=== PATIENT | female | born 1990 | race Caucasian/White ===

== ENCOUNTER 2024-08-19 08:18 | Inpatient (IN) ==
[2024-08-19] MEDS ORDERED: LIDOCAINE 1% LOCAL 20 ML VIAL INFIL PRN (09:39)
[2024-08-19] MEDS ORDERED: OXYTOCIN 30 UNITS/NSS 30 UNITS/500 ML BAG IV PRN (09:39)
[2024-08-19] MEDS: miSOPROStoL 25 MCG TAB PO SCH (10:09)
--- NOTE | 2024-08-19 10:27 | Obstetrical Progress Note ---
Date of Service August 19, 2024 Assessment & Plan (1) : Plan: 33yo G1@ 39 weeks Here for labor induction FHR; CAT1 VE; 1-2/25/-2 Ctx; irregular Bedside sono; VT Cytotec #1 ordered Admission and Anticipated Discharge Date Admission Date: August 19, 2024 Results & Data Vital Signs (Past 12 Hours) Vital Signs Temp Pulse Resp BP 08/19/24 09:21 74 118/80 08/19/24 08:57 36.5 C 77 16 121/81 08/19/24 08:26 77 121/81
[2024-08-19 10:32] LABS: Hematocrit (blood only) 35.8 % (37.0-47.0); Hemoglobin 12.2 g/dl (12.0-16.0); Mean Corpuscular Hemoglobin 30.4 pg (25.0-34.0); Mean Corpuscular Hgb Conc 34.1 g/dL (32.0-36.0); Mean Corpuscular Volume 89.3 fL (80.0-100.0); Mean Platelet Volume 10.5 fL (9.4-12.4); Platelet Count 188 K/uL (130-400); RDW Standard Deviation 42.6 fL (36.4-46.3); Red Blood Count 4.01 M/uL (4.20-5.40); White Blood Count 10.35 K/ul (4.8-10.8)
--- OUTSIDE RECORDS SUMMARY | 2024-08-19 17:25 | External Medical Summary | Summary of Care ---
Author Name Unknown Organization [facility] Address [address] [facility] [address] Phone [phone] Care Team Providers Care Rn Managed Care Name Role Phone Judy Goss DO Primary Care Provider Reason for Visit * Reason Comments Non Stress Test IVF Return Visit 36w4d Encounter Details Date Type Department Care Team (Late st Contact Info) Description 08/01/2024 10:15 AM EDT Office Visit Gynecology/Obstetric s, [place] [address] [place] [phone] Radha Paula PA-C [address] [place] [address] [place], Non Stress Test [address] [facility] [place] [phone] resulting from in vitro fertilization, antepartum*; Antepartum anemia complicating ; Abnormal glucose tolerance in mother complicating Allergies No known active allergiesdocumented as of this encounter (statuses as of 08/01/2024) Medications Medication Sig Dispensed Refills Start Date End Date Status Folic Acid 0.8 MG Oral Capsule Take by mouth. Active 6.75-0.2 MG Oral Tablet Take by mouth. Active Breast Pump status of mother Z39.1 1 Each 05/30/2024 Active Iron-Vitamin C 65-125 MG Oral Tablet (Vitron C)Indications:Ante anemia complicating Take 1 Tablet by mouth in the morning. 90 Tablet 3 05/31/2024 Active Docusate Sodium 100 MG Oral Capsule (Colace)Indication s:Antepartum anemia complicating Take 1 Capsule by mouth 2 times a day as needed for Constipation. 60 Capsule 5 05/31/2024 Active documented as of this encounter (statuses as of 08/01/2024) Active Problems Problem Noted Date Diagnosed Date Antepartum anemia complicating 024 Abnormal glucose tolerance in mother complicatin g 05/31/2024 Overview: Failed 1 hour at 27w5d 3 hour ordered resulting from in vitro fertilization, antepartum 02/08/2024 Overview: Patient's egg and partner's sperm Embryo Transfer 12/08/23 PGT-A (Preimplantation Genetic Testing for Aneuploidy) completed Last Assessment & Plan: We reviewed slightly increased risk for congenital anomalies, particularly cardiac, in IVF pregnancies as well as FGR. Etiology of these complications is unknown; perhaps related to underlying cause of the infertility vs. embryo cell culture. The risk is higher when ICSI is used. echo may not detect small VSD (<2mm) but is effective in diagnosis of most cyanotic lesions and many other clinically relevant cardiac defects. Today's exam did not suggest any evidence of cardiac abnormality. 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 Previously had regular periods She was not on any medications--used plan b once or twice Spontaneously started to get cycle again this past month Reviewed same. rx tsh No further work up at present since she desires to start control pill . Exam was negative documented as of this encounter (statuses as of 08/01/2024) Immunizations Name Administration Dates Next Due COVID-19 mRNA, LNP-s, No Pre serve, 2-Dose Series (Moderna) 03/12/2021,02/05/2021 HEPATITIS B VACCINE, RECOMB, 20 MCG/ML, ADULT (HEPLISAV-B) 03/20/2023,02/18/2023 Hepatitis B, 0-19 yrs 08/25/2001,06/01/2000,04/04 PPD 02/09/2024,,10/29/2020,2015 Seasonal Influenza Virus Vac cine, Unspecified Formulation 08/04/2021 Seasonal Influenza, PF, 6 M & above, IM , (FluLaval or Fluzone) 07/28/2023,08/18/2022 Seasonal Influenza, Quadriva lent, No Preserve, IM 06/24/2016 Seasonal Influenza, Trivalen t, (IIV3), PF, (Fluzone) 06/21/2024 TDAP (age 10 and older)(Boostrix) 10/11/2020,07/2010 TDAP, Age 7 and older, IM (Adacel) 05/30/2024 Varicella Vaccine (Chicken Pox) 04/02/2015,03/02 documented as of this encounter Social History Tobacco Use Types Packs/Day Years Used Date Smoking Tobacco: Never Smokeless Tobacco: Never Alcohol Use Standard Drinks/Week Comments Not Currently 0 (1 standard drink = 0.6 oz pur e alcohol) occasional Hunger Vital Sign Answer Date Recorded Within the past 12 months, y ou worried that your food would run out before you got the money to buy more. Never true 06/14/20 24 Within the past 12 months, t he food you bought just didn't last and you didn't have money to get more. Never true 06/14/2024 [place] Depression Scale Answer Date Recorded [place] Depression Scale Total 2 06/14/2024 The thought of harming myself has occurred to me . Never 06/14/2024 Childcare Answer Date Recorded Do you feel overwhelmed with taking care of a child, family member or friend? No 06/14/2024 Does your family need help f inding childcare? (Household - for ages 0-17 years) Not on file 06/14/2024 Clothing Answer Date Recorded Have you been unable to get clothing when it was really needed? No 06/14/2024 Is your family able to get c lothes or diapers when needed? (Household - for ages 0-17 years) Not on file 06/14/2024 Personal Safety Answer Date Recorded Do you feel unsafe or have concerns for your saf ety? No 06/14/2024 Do you have concerns for you r family's safety? (Household - for ages 0-17 years) Not on file 06/14/2024 Utilities Answer Date Recorded Do you have trouble paying y our heating, water, or electric bill? No 06/14/2024 Is your family able to pay t he heat, water, or electric bill? (Household - for ages 0-17 years) Not on file 06/14/2024 Does your family have access to good internet? (Household - for ages 0-17 years) Not on file 06/14/2024 Employment Status Answer Date Recorded Are you unemployed or without regular income? No 06/14/2024 Does the household have a [facility] source of income? (Household - for ages 0-17 years) Not on file 06/14/2024 Social Connections Answer Date Recorded How often do you feel lonely or isolated from th ose around you? Never 06/14/2024 Financial Resource Strain Answer Date R ecorded Do you have any trouble payi ng for your medications, or do you think you might in the future? No 06/14/2024 Does your family have troubl e paying for medicine? (Household - for ages 0-17 years) Not on file 06/14/2024 Transportation Needs Answer Date Record ed Do you have trouble getting a ride to medical visits or work? (Adult - for ages 18 years and over) Not on file 06/14/2024 Does your family have a hard time getting a ride to doctors visits? (Household - for ages 0-17 years) Not on file 06/14/2024 Has lack of transportation k ept you from medical appointments, meetings, work, or from getting things needed for daily living? Check all that apply. No 06/14/2024 Do you (or your family) have trouble finding or paying for a ride (transportation)? (Household - for ages 0-17 years) Not on file 06/14/2024 Housing Stability Answer Date Recorded Do you currently live in a s helter or have no steady place to sleep at night? No 06/14/2024 Do you think you are at risk of becoming homeless? (Adult - for ages 18 years and over) Not on file 06/14/2024 Does your family worry about paying for your home or becoming homeless? (Household - for ages 0-17 years) Not on file 0 06/14/2024 Are you homeless or worried that you might be in the future? No 06/14/2024 Are you (or your family) jagdeep eless or worried that you might be in the future? (Household - for ages 0-17 years) Not on file Food Insecurity Answer Date Recorded Do you need food for this week? No 06/14/2024 Are you able to get enough f ood for your family? (Household - for ages 0-17 years) Not on file 06/14/2024 Does your family need food t his week? (Household - for ages 0-17 years) Not on file 06/14/2024 Do you always have enough fo od for your family? (Household - for ages 0-17 years) Not on file 06/14/2024 Estimated Date of Delivery Comme nts Yes 08/25/2024 Based on Embryo Transfer Sex and Gender Information Value Date Recorded Sex Assigned at Female 08/31/2022 11:38 AM EST Gender Identity Female 08/31/2022 11:38 AM EST Sexual Orientation Bisexual 08/31/2022 11 :38 AM EST Job Start Date Occupation Industry Not on file Not on file Not on file documented as of this encounter Last Filed Vital Signs Vital Sign Reading Time Taken Comments Blood Pressure 104/62 08/01/2024 10:28 AM EDT Pulse - - Temperature 36.9 C (98.4 F) 08/01/2024 10:28 AM E DT Respiratory Rate - - Oxygen Saturation - - Inhaled Oxygen Concentration - - Weight 68.6 kg (151 lb 3.2 oz) 08/01/2024 10:28 AM EDT Height - - Body Mass Index 24.4 02/04/2024 1:33 PM EDT documented in this encounter Progress Notes * Radha Paula PA-C - 08/01/2024 10:53 AM EDT Arpita Arzate is a 33 year old female here for her routine OB appointment at 36w4d Her Estimated Date of Delivery: 08/25/24 REVIEW OF SYSTEMS: She affirms movement. Denies vaginal bleeding, LOF, contractions, N/V, headaches PHYSICAL EXAM: Filed Vitals: 08/01/24 1028 BP: 104/62 Temp: 36.9 C (98.4 F) TempSrc: Tympanic Weight: 68.6 kg (151 lb 3.2 oz) FHT - NST Fundal height 36 ASSESSMENT/PLAN: resulting from in vitro fertilization, antepartum (Primary) Antepartum anemia complicating Abnormal glucose tolerance in mother complicating Supervision of - GBS swab collected today .Net Programmer Documentation Patient offered environmental laboratory technician and accepted. Name of environmental laboratory technician: Aminta Chanel CMA - labor precautions and kick counts reviewed - RTO in 1 week Radha Paula PA-C ASSESSMENT assessment with Non-stress Test completed on 08/01/2024 at 36 weeks 4 days gestation for indication of IVF heart baseline: 145 bpm Variability: Moderate Decelerations: absent Accelerations: present Contractions: Present x 1 NST start time: 1011 NST stop time: 1059 NST strip reviewed, interpreted, and approved by OB provider, Radha Paula PA-C. NST strip stored in clinic storage file documented in this encounter Nursing Notes * Aminta Chanel CMA - 08/01/2024 10:29 AM EDT Chief Complaint Patient presents with Non Stress Test IVF Return Visit 36w4d Pt agreeable to GBS today documented in this encounter Plan of Treatment Upcoming Encounters Date Type Department Care Team (Late st Contact Info) Description 08/10/2024 11:15 AM EST Office Visit Gynecology/Obstetrics, [place] [place] [phone] Radha Paula PA-C [address] [place] [address] [place], Non Stress Test [address] [place] [address] 08/15/2024 10:15 AM EST Office Visit Gynecology/Obstetrics, [place] [address] [place] [address] Sherie Barrera PA-C [address] [place] [address] [place], Non Stress Test [address] [place] [address] Pending Results Name Type Priority Associated Diagnoses Date /Time GROUP B STREP CULTURE/PCR Lab Routine resulting from in vitro fertilization, antepartum 08/01/2024 12:22 PM EDT Scheduled Orders Name Type Priority Associated Diagnoses Orde r Schedule GROUP B STREP CULTURE/PCR Lab Routine resulting from in vitro fertilization, antepartum Expected: 08/01/2024, Expires: 08/01/2025 Health Maintenance Due Date Last Done Comments Depression Screening 2001 Pap Smear 12/09/2018 12/10/2015 Cervical Cancer Screening 2019 HPV/Co-Test 2019 COVID-19 Vaccine ( season) 2024 03/12/2021, 02/05/2021 DTap/Tdap Vaccines (4 - Td or Tdap) 05/30/2034 05/30/2024, 10/11/2020, 12/12/2009 Hepatitis B Vaccine Completed 03/20/2023, 02/18/2023, 08/25/2001, Additional history exists Influenza Vaccine (FLU shot) Completed , 07/28/2023, 08/18/2022, Additional history exists HPV (Gardasil) Vaccine Aged Out No lo nger eligible based on patient's age to complete this topic MENINGOCOCCAL (MENACTRA/MENVEO) Aged Out No longer eligible based on patient's age to complete this topic Pneumococcal Vaccine: Pediatrics (0 to 5 Years) and At-Risk Patients (6 to 64 Years) Aged Out No longer eligible based on patient's age to complete this topic documented as of this encounter Medical Devices Not on filedocumented as of this encounter Visit Diagnoses Diagnosis resulting from in vitro fertilization, antepartum- Primary Antepartum anemia complicating Anemia, antepartum Abnormal glucose tolerance in mother complicating Abnormal maternal glucose tolerance, complicating , childbirth, or the puerperium, unspecified as to episode of care documented in this encounter Care Teams Rn Managed Care Relationship Specialty Start Date End Date Judy Goss DO [address] [place] [place] [address] PCP - General Family Medicine 12/10/15 documented as of this encounter
--- OUTSIDE RECORDS SUMMARY | 2024-08-19 17:25 | External Medical Summary | Summary of Care ---
Author Name Unknown Organization [facility] Address [address] [facility] [place] [address] Phone [phone] Care Team Providers Care Value Stream Manager Name Role Phone Judy Goss DO Primary Care Provider Reason for Visit * Reason Comments Return Visit 37w6d Non Stress Test IVF Encounter Details Date Type Department Care Team (Late st Contact Info) Description 08/10/2024 11:15 AM EST Office Visit Gynecology/Obstetric s, [place] [address] [place] [phone] Radha Paula PA-C [address] [facility] [place] [address] [place], Non Stress Test [address] [facility] [place] [id number] resulting from in vitro fertilization, antepartum*; Antepartum anemia complicating ; Abnormal glucose tolerance in mother complicating Allergies No known active allergiesdocumented as of this encounter (statuses as of 08/10/2024) Medications Medication Sig Dispensed Refills Start Date [...] as of this encounter (statuses as of 08/10/2024) Active Problems Problem Noted Date Diagnosed Date [...] as of this encounter (statuses as of 08/10/2024) Resolved Problems Problem Noted Date Diagnosed Date [...] as of this encounter (statuses as of 08/10/2024) Immunizations Name Administration Dates Next Due COVID-19 [...] money to get more. Never true 06/14/2024 [place] Depression Scale Answer Date Recorded [place] Depression Scale Total 2 06/14/2024 The thought [...] No 06/14/2024 Does the household have a [facility] source of income? (Household - for ages [...] Sign Reading Time Taken Comments Blood Pressure 108/72 08/10/2024 11:39 AM EST Pulse - - Temperature 36.1 C (97 F) 08/10/2024 11:39 AM EST Respiratory Rate - - Oxygen Saturation - - Inhaled Oxygen Concentration - - Weight 69.1 kg (152 lb 6.4 oz) 08/10/2024 11:39 AM EST Height - - Body Mass Index 24.6 02/04/2024 1:33 PM EDT documented in this encounter Progress Notes * Radha Paula PA-C - 08/10/2024 12:40 PM EST Arpita Arzate is a 33 year old female here for her routine OB appointment at 37w6d Her Estimated Date of Delivery: 08/25/24 REVIEW OF SYSTEMS: She affirms movement. Denies vaginal bleeding, LOF, N/V, headaches. Reports some irregular, not time able contractions. Declined cervical check today. PHYSICAL EXAM: Filed Vitals: 08/10/24 1139 BP: 108/72 Temp: 36.1 C (97 F) TempSrc: Tympanic Weight: 69.1 kg (152 lb 6.4 oz) +FHT - NST ASSESSMENT/PLAN: resulting from in vitro fertilization, antepartum (Primary) - US BPP W/O NON-STRESS TEST; Future; Expected date: 08/10/2024 Antepartum anemia complicating Abnormal glucose tolerance in mother complicating Supervision of - labor precautions and kick counts reviewed - [facility] at [facility] on 08[facility]19 - RTO in 1 week Radha Paula PA-C ASSESSMENT assessment with Non-stress Test completed on 08/10/2024 at 37 weeks 6 days gestation for indication of IVF heart baseline: 130 bpm, tracing is inconsistent due to movement/activity Variability: Moderate Decelerations: absent Accelerations: present Contractions: Present - irregular NST start time: 1119 NST stop time: 1207 NST strip reviewed, interpreted, and approved by OB provider, Radha Paula PA-C. NST strip stored in clinic storage file BPP completed 05/12 documented in this encounter Nursing Notes * Aminta Chanel CMA - 08/10/2024 11:38 AM EST Chief Complaint Patient presents with Return Visit 37w6d Non Stress Test IVF Pt voices no concerns for today documented in this encounter Plan of Treatment Upcoming Encounters Date Type Department Care Team (Late st Contact Info) Description 08/15/2024 10:15 AM EST Office Visit Gynecology/Obstetrics, [place] [address] [place] [address] Sherie Barrera PA-C [address] [place] [address] [place], Non Stress Test [address] [place] [address] Health Maintenance Due Date Last Done Comments [...] Not on filedocumented as of this encounter Results * US BPP W/O NON-STRESS TEST (08/10/2024 1:33 PM EST) Anatomical Region Laterality Modality Abdomen, Body Ultrasound 08/10/2024 1:58 PM EST Impressions 08/10/2024 1:55 PM EST IMPRESSION: 1. BPP score: 8 of 8. 2. Normal ALBINA. 3. Vertex presentation. Narrative 08/10/2024 1:55 PM EST EXAM: US BPP W/O NON-STRESS TEST - 08/10/2024 1:33 pm HISTORY: nonreactive nst/inconsistent tracing, IVF TECHNIQUE: Sonographic examination performed. COMPARISON: None FINDINGS: GENERAL : Brown Presentation: Vertex heart rate: 140 bpm ALBINA: 18.8 cm which is between the 50th and 95th percentiles for this stage of . BIOPHYSICAL PROFILE breathing movement: 2 Gross body movement: 2 tone: 2 Qualitative AFV: 2 Total BPP score: 8 of 8. Procedure Note London Langston MD - 08/10/2024 EXAM: US BPP W/O NON-STRESS TEST - 08/10/2024 1:33 pm HISTORY: nonreactive nst/inconsistent tracing, IVF TECHNIQUE: Sonographic examination performed. COMPARISON: None FINDINGS: GENERAL : Brown Presentation: Vertex heart rate: 140 bpm ALBINA: 18.8 cm which is between the 50th and 95th percentiles for this stageof . BIOPHYSICAL PROFILE breathing movement: 2 Gross body movement: 2 tone: 2 Qualitative AFV: 2 Total BPP score: 8 of 8. IMPRESSION IMPRESSION: 1. BPP score: 8 of 8. 2. Normal ALBINA. 3. Vertex presentation. Radha Paula PA-C RAD ULTRASOUND documented in this encounter Visit Diagnoses Diagnosis resulting from in vitro fertilization, antepartum- Primary Antepartum anemia complicating Anemia, antepartum Abnormal glucose tolerance in mother complicating Abnormal maternal glucose tolerance, complicating , childbirth, or the puerperium, unspecified as to episode of care resulting from in vitro fertilization, antepartum documented in this encounter Care Teams Value Stream Manager Relationship Specialty Start Date End Date Juyd Goss DO [address] [facility] [place] [address] PCP - General Family Medicine 12/10/15 documented as of this encounter
--- OUTSIDE RECORDS SUMMARY | 2024-08-19 17:25 | External Medical Summary | Summary of Care ---
Author Name Unknown Organization [facility] Address [address] [facility] [place] [address] Phone [phone] Care Team Providers Care Consulting Project Director Name Role Phone Judy Goss DO Primary Care Provider Reason for Visit * Reason Comments Non Stress Test Return Visit 38w4d Encounter Details Date Type Department Care Team (Late st Contact Info) Description 08/15/2024 10:15 AM EST Office Visit Gynecology/Obstetric s, [place] [address] [place] [phone] Sherie Barrera PA-C [address] [place] [address] Noemy Whyte Stress Test [address] [place] [phone] Supervision of high-risk , third trimester*; resulting from in vitro fertilization, antepartum; Antepartum anemia complicating ; Abnormal glucose tolerance in mother complicating Allergies No known active allergiesdocumented as of this encounter (statuses as of 08/15/2024) Medications Folic Acid 0.8 MG Oral Capsule Take by mouth. Active 6.75-0.2 MG Oral Tablet Take by mouth. Activ e Breast Pump status of mother Z39.1 1 Each 05/30/20 24 Active Iron-Vitamin C 65-125 MG Oral Tablet (Vitron C)Indications:An tepartum anemia complicating Take 1 Tablet by mouth in the morning. 90 Tablet 3 05/31/20 24 Active Docusate Sodium 100 MG Oral Capsule (Colace)Indicati ons:Antepartum anemia complicating Take 1 Capsule by mouth 2 times a day as needed for Constipation. 60 Capsule 5 05/31/20 24 Active documented as of this encounter (statuses as of 08/15/2024) Active Problems Problem Noted Date Diagnosed Date Antepartum anemia complicating 024 Abnormal glucose tolerance in mother complicatin g 05/31/2024 Overview (05/31/2024): Failed 1 hour at 27w5d 3 hour ordered resulting from in vitro fertilization, antepartum 02/08/2024 Overview (02/15/2024): Patient's egg and partner's sperm Embryo Transfer 12/08/23 PGT-A (Preimplantation Genetic Testing for Aneuploidy) completed Assessment & Plan (04/15/2024 3:53 PM EDT): We reviewed slightly increased risk for congenital [...] not suggest any evidence of cardiac abnormality. Assessment & Plan (02/24/2024 1:20 PM EDT): The anatomy that was visualized is appropriate for the gestational age. Assessment & Plan (02/15/2024 11:37 AM EDT): CONSIDERATIONS: Assisted reproductive technology (ART) includes in vitro fertilization (IVF), intrauterine insemination (IUI), Gamete intrafallopian transfer (GIFT) and Zygote intrafallopian transfer (ZIFT). Discussed with patient that pregnancies after ART are associated with increased risk for spontaneous , ectopic (higher with ZIFT for history of tubal factor infertility), multiple gestation and low weight. Discussed with patient that even for mcfadden ART pregnancies, the relative risk of complications such as growth restriction, preeclampsia, prematurity, placental abruption, and mortality are increased, although clearly not independent of infertility itself. Neurodevelopmental outcomes of children conceived by ART appear to be normal. Risk of congenital abnormalities is increased by about 1/3 over the population baseline risk of 2-4%. There is approximately 1% of cardiac defects associated with pregnancies resulting from IVF. This is likely due to the fertilization process. RECOMMENDATIONS: Recommend consult with genetic counselor. See genetic counselor's note. Recommend Maternal Medicine (MFM) level II anatomy scan at 19-20 weeks. Recommend echocardiography by MFM at 22-24 weeks gestation for patients who have had IVF. Recommend MFM growth evaluation if indicated by other existing or maternal conditions. Recommend ultrasound for growth at 28-32 weeks. Recommend weekly NSTs to begin at 36 weeks. Consider delivery at 39 weeks. 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 Previously had regular periods She was not on any medications--used plan b once or twice Spontaneously started to get cycle again this past month Reviewed same. rx tsh No further work up at present since she desires to start control pill . Exam was negative documented as of this encounter (statuses as of 08/15/2024) Immunizations Name Administration Dates Next Due COVID-19 [...] Date Smoking Tobacco: Never Smokeless Tobacco: Never Tobacco Cessation:Counseling Given: Not Answered Alcohol Use Standard Drinks/Week Comments Not Currently [...] money to get more. Never true 06/14/2024 [place] Depression Scale Answer Date Recorded [place] Depression Scale Total 2 06/14/2024 The thought [...] No 06/14/2024 [facility] the [facility] have a [facility]? (Household - for ages [...] Assigned at Female 08/31/2022 11:38 AM EST Legal Sex Female 6:51 AM EST Gender Identity Female 08/31/2022 11:38 AM EST Sexual Orientation Bisexual 08/31/2022 11 :38 AM EST documented as of this encounter Last Filed Vital Signs Vital Sign Reading Time Taken Comments Blood Pressure 118/68 08/15/2024 10:14 AM EST Pulse - - Temperature 37 C (98.6 F) 08/15/2024 10: 14 AM EST Respiratory Rate - - Oxygen Saturation - - Inhaled Oxygen Concentration - - Weight 68.4 kg (150 lb 12.8 oz) 024 10:14 AM EST Height - - Body Mass Index 24.34 02/04/2024 1:33 PM EDT documented in this encounter Progress Notes * Sherie Barrera PA-C - 08/15/2024 10:30 AM EST Arpita Arzate is a 33 year old female here for her routine OB appointment at 38w4d Her Estimated Date of Delivery: 08/25/24 REVIEW OF SYSTEMS She affirms movement. Denies vaginal bleeding, LOF, contractions. PHYSICAL EXAM Filed Vitals: 08/15/24 1014 BP: 118/68 Temp: 37 C (98.6 F) Weight: 68.4 kg (150 lb 12.8 oz) ASSESSMENT assessment with Non-stress Test completed on 08/15/2024 at 38w4d weeks gestation for indication of IVF heart baseline: 150 bpm Variability: Moderate Decelerations: absent Accelerations: present Contractions: None NST start time: 1001 NST stop time: 1023 NST strip reviewed, interpreted, and approved by OB provider, Sherie Barrera PA-C. NST strip stored in clinic storage file CE: Position: cephalic - confirmed by bedside U/S. Consulted with Dr. Stefania MD for assistance. Regulatory Technician Documentation Patient offered unix administrator and accepted. Name of unix administrator: Cristina Kurtz CMA ASSESSMENT/PLAN Supervision of high-risk , third trimester (Primary) resulting from in vitro fertilization, antepartum Antepartum anemia complicating Supervision of - labor precautions and kick counts reviewed - IOL scheduled 08/19 at [facility]. RTO PRN with further concerns. Sherie Barrera PA-C 08/15/2024 documented in this encounter Nursing Notes * Cristina Kurtz CMA - 08/15/2024 10:15 AM EST Chief Complaint Patient presents with Non Stress Test Return Visit 38w4d Cristina Kurtz CMA 08/15/2024 10:15 AM documented in this encounter Plan of Treatment Health Maintenance Due Date Last Done Comments [...] Not on filedocumented as of this encounter Procedures Procedure Name Priority Date/Time Associated Diagnosis Comments POINT OF CARE US - TRANSABDOMINAL Routine 08/15/2024 10:52 AM EST documented in this encounter Results * POINT OF CARE US - TRANSABDOMINAL (08/15/2024 10:52 AM EST) Anatomical Region Laterality Modality Abdomen, Body Radiographic Brisa ging 08/15/2024 10:5 2 AM EST Narrative 08/15/2024 10:58 AM EST Patient Name: ARPITA ARZATE : 1990 (33y) Female Performing Provider: Cheyanne Aguiar (digitally signed Aug 15, 2024 10:58 EST) Attending: Cheyanne Aguiar (digitally signed Aug 15, 2024 10:58 EST) [Indications (Required field)] : position [Indications (Required field)] : [Placenta Location (Required field)] : Posterior [Placenta Location (Required field)] : [Placenta Location (Required field)] : No previa [Placenta Location (Required field)] : [Placenta Location (Required field)] : [ Assessment] LMP: [ Assessment] PEACE: [ Assessment] Fetus Position (Required field): Cephalic [ Assessment] : [Findings (Required field)] heart rate/BPM: NST cat 1 [Findings (Required field)] Other: [Findings (Required field)] Amniotic fluid volume: Qualitative assessment [Findings (Required field)] : [Findings (Required field)] : Subjectively normal [Interpretation (Required field)] : Normal intrauterine [Interpretation (Required field)] : [Interpretation (Required field)] : Procedure Note Cheyanne Aguiar MD - 08/15/2024 Patient Name: ARPITA ARZATE : 1990 (33y) Female Performing Provider: Cheyanne Aguiar (digitally signed Aug 15, 2024 10:58EST) Attending: Cheyanne Aguiar (digitally signed Aug 15, 2024 10:58 EST) [Indications (Required field)] : position [Indications (Required field)] : [Placenta Location (Required field)] : Posterior [Placenta Location (Required field)] : [Placenta Location (Required field)] : No previa [Placenta Location (Required field)] : [Placenta Location (Required field)] : [ Assessment] LMP: [ Assessment] PEACE: [ Assessment] Fetus Position (Required field): Cephalic [ Assessment] : [Findings (Required field)] heart rate/BPM: NST cat 1 [Findings (Required field)] Other: [Findings (Required field)] Amniotic fluid volume: Qualitativeassessment [Findings (Required field)] : [Findings (Required field)] : Subjectively normal [Interpretation (Required field)] : Normal intrauterine [Interpretation (Required field)] : [Interpretation (Required field)] : Cheyanne Aguiar MD RAD ULTRASOUND Final Result documented in this encounter Visit Diagnoses Diagnosis resulting from in vitro fertilization, antepartum- Primary Supervision of high risk , antepartum, first trimester 12 weeks gestation of state, incidental resulting from in vitro fertilization, antepartum- Primary resulting from in vitro fertilization, antepartum- Primary Encounter for anatomic survey Encounter for screening for congenital cardiac abnormalities in fetus 21 weeks gestation of state, incidental Supervision of high-risk , third trimester- Primary resulting from in vitro fertilization, antepartum Antepartum anemia complicating Anemia, antepartum Abnormal glucose tolerance in mother complicating Abnormal maternal glucose tolerance, complicating , childbirth, or the puerperium, unspecified as to episode of care documented in this encounter Care Teams Consulting Project Director Relationship Specialty Start Date End Date Judy Goss DO [address] [facility] [phone] PCP - General Family Medicine 12/10/15 documented as of this encounter
--- OUTSIDE RECORDS SUMMARY | 2024-08-19 17:26 | External Medical Summary | Summary of Care ---
Author Name Unknown Organization [facility] Address [address] [facility] [place] [address] Phone [phone] Care Team Providers Care Pearl Diver Name Role Phone Judy Goss DO Primary Care Provider Reason for Visit * Reason Comments Return Visit 34w4d Encounter Details Date Type Department Care Team (Late st Contact Info) Description 07/18/2024 1:15 PM EDT Office Visit Gynecology/Obstetric [place] [address] [place] [phone] Radha Paula PA-C [address] [facility] [place] [phone] resulting from in vitro fertilization, antepartum*; Antepartum anemia complicating ; Abnormal glucose tolerance in mother complicating Allergies No known active allergiesdocumented as of this encounter (statuses as of 07/18/2024) Medications Medication Sig Dispensed Refills Start Date [...] as of this encounter (statuses as of 07/18/2024) Active Problems Problem Noted Date Diagnosed Date [...] as of this encounter (statuses as of 07/18/2024) Resolved Problems Problem Noted Date Diagnosed Date [...] as of this encounter (statuses as of 07/18/2024) Immunizations Name Administration Dates Next Due COVID-19 [...] money to get more. Never true 06/14/2024 [place] Depression Scale Answer Date Recorded [place] Depression Scale Total 2 06/14/2024 The thought [...] No 06/14/2024 Does the household have a re lar source of income? (Household - for ages [...] Sign Reading Time Taken Comments Blood Pressure 102/60 07/18/2024 1:47 PM EDT Pulse - - Temperature 37 C (98.6 F) 07/18/2024 1:47 PM EDT Respiratory Rate - - Oxygen Saturation - - Inhaled Oxygen Concentration - - Weight 68.3 kg (150 lb 9.6 oz) 07/18/2024 1:47 P M EDT Height - - Body Mass Index 24.31 02/04/2024 1:33 PM EDT documented in this encounter Progress Notes * Radha Paula PA-C - 07/18/2024 1:47 PM EDT Arpita Arzate is a 33 year old female here for her routine OB appointment at 34w4d Her Estimated Date of Delivery: 08/25/24 REVIEW OF SYSTEMS: She affirms movement. Denies vaginal bleeding, LOF, contractions, N/V, headaches Had MFM growth scan on 07/14, EFW 87%ile PHYSICAL EXAM: Filed Vitals: 07/18/24 1347 BP: 102/60 Temp: 37 C (98.6 F) TempSrc: Tympanic Weight: 68.3 kg (150 lb 9.6 oz) +FHT 130s Fundal height 34 ASSESSMENT/PLAN: resulting from in vitro fertilization, antepartum (Primary) - weekly NSTs at 36 weeks Antepartum anemia complicating Abnormal glucose tolerance in mother complicating Follow-up: Return in about 2 weeks (around 08/01/2024). | Check-out note: NST with all visits starting at next MARCY visit Supervision of - discussed GBS and to expect swab to be complete at next visit - labor precautions and kick counts reviewed - RTO in 2 weeks Radha Paula PA-C documented in this encounter Nursing Notes * Aminta Chanel CMA - 07/18/2024 1:47 PM EDT Chief Complaint Patient presents with Return Visit 34w4d Pt here for MARCY. Voices no concerns for today. Declines RSV documented in this encounter Plan of Treatment Upcoming Encounters Date Type Department Care Team (Late st Contact Info) Description 08/01/2024 10:15 AM EDT Office Visit Gynecology/Obstetrics, [place] [address] [place] [phone] Radha Paula PA-C [address] [place] [address] Noemy Whyte Stress Test [address] [place] [phone] 08/10/2024 11:15 AM EST Office Visit Gynecology/Obstetrics, [place] [address] [place] [address] Rdaha Paula PA-C [address] [place] [address] [place], Non Stress Test [address] [place] [phone] 08/15/2024 10:15 AM EST Office Visit Gynecology/Obstetrics, [place] [address] [place] [address] Sherie Barrera PA-C [address] [place] [address] [place] Non Stress Test [address] [place] [address] Health Maintenance Due Date Last Done Comments [...] care documented in this encounter Care Teams Pearl Diver Relationship Specialty Start Date End Date Judy Goss DO [address] [place] [address] PCP - General Family Medicine 12/10/15 documented as of this encounter"
--- OUTSIDE RECORDS SUMMARY | 2024-08-19 17:26 | External Medical Summary | Summary of Care ---
Author Name Unknown Organization [facility] Address [address] [place] [address] Phone [phone] Care Team Providers Care Manager Marketing Sales Name Role Phone Judy Goss DO Primary Care Provider Encounter Details Date Type Department Care Team (Late st Contact Info) Description 07/14/2024 1:45 PM EDT Office Visit Fuels Engineer Obstetrics Maternal Medicine, [address] [place] [address] Desiree Zamudio DO [address] [place] [address] resulting from in vitro fertilization, antepartum*; Ultrasound for screening for growth restriction; 34 weeks gestation of Allergies No known active allergiesdocumented as of this encounter (statuses as of 07/15/2024) Medications Medication Sig Dispensed Refills Start Date [...] as of this encounter (statuses as of 07/15/2024) Active Problems Problem Noted Date Diagnosed Date [...] as of this encounter (statuses as of 07/15/2024) Resolved Problems Problem Noted Date Diagnosed Date [...] as of this encounter (statuses as of 07/15/2024) Immunizations Name Administration Dates Next Due COVID-19 [...] money to get more. Never true 06/14/2024 [place] Depression Scale Answer Date Recorded [place] Depression Scale Total 2 06/14/2024 The thought [...] on file documented as of this encounter Progress Notes * Desiree Zamudio, DO - 07/15/2024 12:20 PM EDT Arpita presented today at 34w1d for an ultrasound for the following indications: resulting from in vitro fertilization, antepartum Ultrasound for screening for growth restriction 34 weeks gestation of Ultrasound summary: Patient presented at 34w 0d for growth assessment. Normal growth with EFW 2730 g at 87%ile. Normal ALBINA at 17.2 cm. Cephalic presentation. I reviewed the ultrasound images. Arpita was given the opportunity to meet with me if she had any questions. Please refer to the ultrasound report for additional details about today's ultrasound examination. RECOMMENDATIONS: Follow up with MFM for ultrasound as clinically indicated. See prior formal MFM consultation note. Thank you for allowing us to participate in the care of this patient. Please call with any questions. Desiree Zamudio DO 07/15/2024 12:20 PM documented in this encounter Plan of Treatment Upcoming Encounters Date Type Department Care Team ([facility] st Contact Info) Description 07/18/2024 1:15 PM EDT Office Visit Gynecology/Obstetrics, [place] [address] [place] [address] Radha Paula PA-C [address] [place] [address] Health Maintenance Due Date Last Done Comments [...] resulting from in vitro fertilization, antepartum- Primary Ultrasound for screening for growth restriction screening for growth retardation using ultrasonics 34 weeks gestation of state, incidental documented in this encounter Care Teams Manager Marketing Sales Relationship Specialty Start Date End Date Judy Goss DO [address] [facility] [facility] [address] [place] [phone] PCP - General Family Medicine 12/10/15 documented as of this encounter
--- OUTSIDE RECORDS SUMMARY | 2024-08-19 17:26 | External Medical Summary ---
Author Name Unknown Address Unknown Organization K01:[facility] [address] [place] [address] Laboratory Report Ordering Provider Test Date Status FIFI MAI 08/01/2024 12:22:57 Final Observation Date Value Abnormality Reference (Units ) Status Streptococcus agalactiae DNA [Presence] in Specimen by SUDHAKAR with probe detection 08/01/2024 12:22:57 Negative Negative Final No Group B Streptococcus det ected by culture-enhanced PCR (amplified probe). GBS GBSCT - [facility] 08/01/2024 12:22:57 0.0 Final GBS SPCCT - [facility] 08/01/2024 12:22:57 31.3 Final Performing Location [facility] - [address] [place] [address]
--- OUTSIDE RECORDS SUMMARY | 2024-08-19 17:26 | External Medical Summary | Summary of Care ---
Author Name Unknown Organization [facility] Address [address] [facility] [place] [address] Phone [phone] Care Team Providers Care Putty And Caulking Supervisor Name Role Phone Judy Goss DO Primary Care Provider Reason for Visit * Reason Comments Non Stress Test IVF Return Visit 36w4d Encounter Details Date Type Department Care Team (Late st Contact Info) Description 08/01/2024 10:15 AM EDT Office Visit Gynecology/Obstetric s, [place] [address] [place] [phone] Radha Paula PA-C [address] [place] [address] [place], Non Stress Test [address] [facility] [place] [phone] resulting from in vitro fertilization, antepartum*; Antepartum [...] money to get more. Never true 06/14/2024 [place] Depression Scale Answer Date Recorded [place] Depression Scale Total 2 06/14/2024 The thought [...] No 06/14/2024 Does the household have a [facility] source of income? (Household - for ages [...] Supervision of - GBS swab collected today Investigator Narcotics Documentation Patient offered optical goods drill operator and accepted. Name of optical goods drill operator: Aminta Chanel CMA - labor precautions and [...] 08/10/2024 11:15 AM EST Office Visit Gynecology/Obstetrics, [place] [place] [phone] Radha Paula PA-C [address] [place] [address] [place], Non Stress Test [address] [place] [address] 08/15/2024 10:15 AM EST Office Visit Gynecology/Obstetrics, [place] [address] [place] [address] Sherie Barrera PA-C [address] [place] [phone] [place], Non Stress Test [address] [place] [address] Scheduled Orders Name Type Priority Associated Diagnoses [...] care documented in this encounter Care Teams Putty And Caulking Supervisor Relationship Specialty Start Date End Date Judy Goss DO [address] [facility] [address] PCP - General Family Medicine 12/10/15 documented as of this encounter
--- OUTSIDE RECORDS SUMMARY | 2024-08-19 17:26 | External Medical Summary | Summary of Care ---
Author Name Unknown Organization [facility] Address [address] [place] [address] Phone [phone] Care Team Providers Care Multifocal Lens Inspector Name Role Phone Judy Goss DO Primary Care Provider Reason for Visit * Reason Comments Return Visit 32w1d Encounter Details Date Type Department Care Team (Late st Contact Info) Description 07/01/2024 3:30 PM EDT Office Visit Gynecology/Obstetric Pato carlson [address] [place] [phone] Sherie Barrera PA-C [address] [place] [address] Supervision of high-risk , third trimester*; resulting from in vitro fertilization, antepartum; Antepartum anemia complicating ; Abnormal glucose tolerance in mother complicating Allergies No known active allergiesdocumented as of this encounter (statuses as of 07/01/2024) Medications Medication Sig Dispensed Refills Start Date [...] as of this encounter (statuses as of 07/01/2024) Active Problems Problem Noted Date Diagnosed Date [...] as of this encounter (statuses as of 07/01/2024) Resolved Problems Problem Noted Date Diagnosed Date [...] as of this encounter (statuses as of 07/01/2024) Immunizations Name Administration Dates Next Due COVID-19 [...] money to get more. Never true 06/14/2024 [place] Depression Scale Answer Date Recorded [place] Depression Scale Total 2 06/14/2024 The thought [...] No 06/14/2024 Does the household have a [facility] source of income? (Household - for ages [...] Sign Reading Time Taken Comments Blood Pressure 118/62 07/01/2024 3:39 PM EDT Pulse - - Temperature 36.3 C (97.4 F) 07/01/2024 3:39 PM ED T Respiratory Rate - - Oxygen Saturation - - Inhaled Oxygen Concentration - - Weight 66.8 kg (147 lb 3.2 oz) 07/01/2024 3:39 P M EDT Height - - Body Mass Index 23.76 02/04/2024 1:33 PM EDT documented in this encounter Progress Notes * Sherie Barrera PA-C - 07/01/2024 3:52 PM EDT Arpita Arzate is a 33 year old female here for her routine OB appointment at 32w1d Her Estimated Date of Delivery: 08/25/24 REVIEW OF SYSTEMS She affirms movement. Denies vaginal bleeding, LOF, contractions, N/V, headaches, vision changes, chest pain, RUQ pain. PHYSICAL EXAM Filed Vitals: 07/01/24 1539 BP: 118/62 Temp: 36.3 C (97.4 F) Weight: 66.8 kg (147 lb 3.2 oz) +FHT 140s Fundal height 31 cm ASSESSMENT/PLAN Supervision of high-risk , third trimester (Primary) - Following with MFM resulting from in vitro fertilization, antepartum - NSTs 36 weeks Antepartum anemia complicating Abnormal glucose tolerance in mother complicating - Passed 3 hour GTT Supervision of - recommended flu vaccine - patient received - would like RSV vaccine at next MARCY - labor precautions and kick counts reviewed RTO in 2 weeks Sherie Barrera PA-C 07/01/2024 documented in this encounter Nursing Notes * Cristina Kurtz CMA - 07/01/2024 3:42 PM EDT Chief Complaint Patient presents with Return Visit 32w1d Pt voices no concerns for today. Cristina Kurtz CMA 07/01/2024 3:42 PM documented in this encounter Plan of Treatment Upcoming Encounters Date Type Department Care Team (Late st Contact Info) Description 07/14/2024 1:45 PM EDT Imaging Maternal Medicine Imaging, [facility] [address] [facility] [place] [phone] 07/18/2024 1:15 PM EDT Office Visit Gynecology/Obstetrics, [place] [address] [place] [address] Radha Paula PA-C [address] [place] [address] Health Maintenance Due Date Last Done Comments Depression Screening 2001 Pap Smear 12/09/2018 12/10/2015 Cervical Cancer Screening 2019 HPV/Co-Test 2019 COVID-19 Vaccine (3 - season) 2024 03/12/2021, 02/05/2021 DTap/Tdap Vaccines (4 [...] as of this encounter Visit Diagnoses Diagnosis Supervision of high-risk , third trimester- Primary resulting from in vitro fertilization, antepartum Antepartum anemia complicating Anemia, antepartum Abnormal glucose tolerance in mother complicating Abnormal maternal glucose tolerance, complicating , childbirth, or the puerperium, unspecified as to episode of care documented in this encounter Care Teams Multifocal Lens Inspector Relationship Specialty Start Date End Date Judy Goss DO [address] [facility] [place] [address] PCP - General Family Medicine 12/10/15 documented as of this encounter
--- OUTSIDE RECORDS SUMMARY | 2024-08-19 17:27 | External Medical Summary | Summary of Care ---
Author Name Unknown Organization [facility] Address [address] [facility] [address] Phone [phone] Care Team Providers Care Medical Corps Officer Name Role Phone Judy Goss DO Primary Care Provider Reason for Visit * Reason Comments Return Visit 23w4d Encounter Details Date Type Department Care Team (Late st Contact Info) Description 05/02/2024 11:45 AM EDT Office Visit Gynecology/Obstetric Pato carlson [address] [place] [address] Mary Ken PA-C [address] [facility] [place] [address] 23 weeks gestation of *; resulting from in vitro fertilization, antepartum; Antepartum anemia complicating ; Abnormal glucose tolerance in mother complicating Allergies No known active allergiesdocumented as of this encounter (statuses as of 05/31/2024) Medications Medication Sig Dispensed Refills Start Date End Date Status Folic Acid 0.8 MG Oral Capsule Take by mouth. Active 6.75-0.2 MG Oral Tablet Take by mouth. Active Iron-Vitamin C 65-125 MG Oral Tablet (Vitron C)Indications:Antepar reika anemia complicating Take 1 Tablet by mouth in the morning. 90 Tablet 3 05/31/2024 Active Docusate Sodium 100 MG Oral Capsule (Colace)Indications:A ntepartum anemia complicating Take 1 Capsule by mouth 2 times a day as needed for Constipation. 60 Capsule 5 05/31/2024 Active documented as of this encounter (statuses as of 05/31/2024) Active Problems Problem Noted Date Diagnosed Date [...] as of this encounter (statuses as of 05/31/2024) Resolved Problems Problem Noted Date Diagnosed Date [...] as of this encounter (statuses as of 05/31/2024) Immunizations Name Administration Dates Next Due COVID-19 mRNA, LNP-s, No Pre serve, 2-Dose Series (Moderna) 03/12/2021,02/05/2021 HEPATITIS B VACCINE, RECOMB, 20 MCG/ML, ADULT (HEPLISAV-B) 03/20/2023,02/18/2023 Hepatitis B, 0-19 yrs 08/25/2001,06/01/2000,04/04 PPD 02/09/2024,,10/29/2020,2015 Seasonal Influenza Virus Vac cine, Unspecified Formulation 08/04/2021 Seasonal Influenza, PF, 6 M & above, IM , (FluLaval or Fluzone) 07/28/2023,08/18/2022 Seasonal Influenza, Quadriva lent, No Preserve, IM 06/24/2016 TDAP (age 10 and older)(Boostrix) 10/11/2020,07/2010 TDAP, Age 7 and older, IM (Adacel) 05/30/2024 Varicella Vaccine (Chicken Pox) 04/02/2015,03/02 documented as of this encounter Social History Tobacco Use Types Packs/Day Years Used Date Smoking Tobacco: Never Smokeless Tobacco: Never Tobacco Cessation:Counseling Given: Not Answered Alcohol Use Standard Drinks/Week Comments Not Currently 0 (1 standard drink = 0.6 oz pur e alcohol) occasional [place] Depression Scale Answer Date Recorded [place] Depression Scale Total 0 02/08/2024 The thought of harming myself has occurred to me . Never 02/08/2024 Utilities Answer Date Recorded Do you have trouble paying y our heating, water, or electric bill? (Adult - for ages 18 years and over) Not on file 03/22/2024 Is your family able to pay t he heat, water, or electric bill? (Household - for ages 0-17 years) Not on file 03/22/2024 Does your family have access to good internet? (Household - for ages 0-17 years) Not on file 03/22/2024 Social Connections Answer Date Recorded How often do you feel lonely or isolated from those around you? (Adult - for ages 18 years and over) Not on file 03/22/2024 Estimated Date of Delivery Comme nts Yes [...] Sign Reading Time Taken Comments Blood Pressure 98/70 05/02/2024 11:49 AM EDT Pulse - - Temperature 36 C (96.8 F) 05/02/2024 11:49 AM EDT Respiratory Rate - - Oxygen Saturation - - Inhaled Oxygen Concentration - - Weight 63.7 kg (140 lb 6.4 oz) 05/02/2024 11:49 AM EDT Height - - Body Mass Index 22.66 02/04/2024 1:33 PM EDT documented in this encounter Patient Instructions * Patient Instructions* Mary Ken PA-C - 05/02/2024 11:58 AM EDT General Considerations Surrounding Immunization During The [place] [employer] recommends routine assessment of each womans immunization status and administration of indicated immunizations. Importantly, evolving data demonstrate maternal and protection against an increasing number of aggressive pathogens through the use of maternal immunization, suggesting is an optimal time to immunize for disease prevention in women and newborns. There is no evidence of adverse effects from vaccinating women with an inactivated virus or bacterial vaccines or toxoids, and a growing body of robust data demonstrate safety of such use. Concomitant administration of indicated suzanne ctivated vaccines during (ie, Tdap and influenza) is also acceptable, safe, and may optimize effectiveness of immunization efforts. Furthermore, no evidence exists that suggests that any vaccine is associated with an increased risk of autism or adverse effects due to exposure to traces ofthe mercury- containing preservative thimerosal 23 24 25 26. The Tdap vaccines do not contain thimerosal. The benefits of inactivated vaccines outweigh any unproven potential concerns. It is importantto remember that live attenuated vaccines (eg, hcberoc-zkczo-dpihvzz [MMR], varicella, and live attenuated influenza vaccine) do pose a theoretical risk (although never documented or proved) to the fetus and generally should be avoided during . The [place] [employer] (ACOG) makes the following recommendations: Obstetric care providers should administer the tetanus toxoid, reduced diphtheria toxoid, and acellular pertussis (Tdap) vaccine to all patients during each , as early in the 01-04-gwpyl-of-gestation window as possible. women should be counseled that the administration of the Tdap vaccine during each is safe and important to make sure that each receives the highest possible protection against pertussis at . Partners, family members, and caregivers should be offered the Tdap vaccine if they have notpreviously been vaccinated. Ideally, all family members should be vaccinated at least 2 weeks before coming in contact with the . If not administered during , the Tdap vaccine should be given immediately if the woman has never received a prior dose of Tdap as an adolescent, adult, or during a previous . Adapted from ACOG https://www.acog.org/en/Clinical/Clinical%20Guidance/Committee%20Opinion/Article s//Update%20o n%20Immunization%20and%20Pregnancy%20Tetanus%20Diphtheria%20and%20Pertussis%20Va ccination documented in this encounter Progress Notes * Cristina Kurtz CMA - 05/02/2024 11:49 AM EDT Chief Complaint Patient presents with Return Visit 23w4d Pt reports she has noticed lower back pain/sciatic pain, but is manageable. No other concerns voiced. Cristina Kurtz CMA 05/02/2024 11:53 AM * Mary Ken PA-C - 05/02/2024 11:45 AM EDT Arpita Arzate is a 33 year old female here for her routine OB appointment at 23w4d . Her Estimated Date of Delivery: 08/25/24 REVIEW OF SYSTEMS: She affirms movement. Denies vaginal bleeding, LOF, contractions, N/V, headaches PHYSICAL EXAM: Filed Vitals: 05/02/24 1149 BP: 98/70 Temp: 36 C (96.8 F) Weight: 63.7 kg (140 lb 6.4 oz) ASSESSMENT/PLAN: 23 weeks gestation of (Primary) resulting from in vitro fertilization, antepartum Supervision of - seen by MFM 04/15/24, repeat growth US in 12 weeks - we reviewed and ordered GTT and CBC for patient to complete between now and her next visit - reviewed recommendation for tdap vaccine at next visit, information given - RTO in 4 weeks Mary Ken PA-C documented in this encounter Miscellaneous Notes * Addendum Note - Mary Ken PA-C - 05/31/2024 1:47 PM EDTAddended by: MARY KEN on: 05/31/2024 01:47 PM Modules accepted: Orders documented in this encounter Plan of Treatment Upcoming Encounters Date Type Department Care Team (Late st Contact Info) Description 06/14/2024 11:30 AM EDT Office Visit Gynecology/Obstetrics, [place] [address] [place] [address] Radha Paula PA-C [address] [place] [address] 07/07/2024 2:30 PM EDT Imaging Maternal Medicine Imaging, [facility] [address] [facility] [place] [phone] Scheduled Orders Name Type Priority Associated Diagnoses Orde r Schedule GESTATIONAL GLUCOSE TOLERANCE, 3 HOUR Lab Routine Abnormal glucose tolerance in mother complicating Expected: 05/31/2024, Expires: 05/31/2025 CBC WITH WBC DIFFERENTIAL AND ANEMIA REFLEX WORKUP Lab Routine Antepartum anemia complicating Expected: 07/01/2024, Expires: 05/31/2025 Health Maintenance Due Date Last Done Comments Depression Screening 2001 Pap Smear 12/09/2018 12/10/2015 Cervical Cancer Screening 2019 HPV/Co-Test 2019 COVID-19 Vaccine (3 - 2022- season) 2023 03/12/2021, 02/05/2021 Influenza Vaccine (FLU shot) (#1) 2024 07/28/2023, 08/18/2022, 08/04/2021, Additional history exists DTap/Tdap Vaccines (4 - Td or Tdap) 05/30/2034 05/30/2024, 10/11/2020, 12/12/2009 Hepatitis B Vaccine Completed 03/20/2023, 02/18/2023, 08/25/2001, Additional history exists HPV (Gardasil) Vaccine Aged [...] filedocumented as of this encounter Results * (ABNORMAL) 50-G GESTATIONAL GLUCOSE, 1 HOUR (05/30/2024 4:48 PM EDT) 50-g Gestational Glucose, 1 Hour 155(H) 70 - 129 mg/dL 05/30/2024 10:49 PM EDT [facility] Venous blood specimen / Unknown Venipuncture / Unknown 05/30/2024 4:48 PM EDT 05/30/2024 4:48 PM EDT Mary Ken PA-C LAB BLOOD [facility] [address] [place] [address] documented in this encounter Visit Diagnoses Diagnosis 23 weeks gestation of - Primary state, incidental resulting from in vitro fertilization, antepartum Antepartum anemia complicating Anemia, antepartum Abnormal glucose tolerance in mother complicating Abnormal maternal glucose tolerance, complicating , childbirth, or the puerperium, unspecified as to episode of care documented in this encounter Care Teams Medical Corps Officer Relationship Specialty Start Date End Date Judy Goss DO [address] [facility] [place] [address] PCP - General Family Medicine 12/10/15 documented as of this encounter
--- OUTSIDE RECORDS SUMMARY | 2024-08-19 17:27 | External Medical Summary ---
Author Name Unknown Address Unknown Organization [id number]:[facility] [place] [address] [place] [address] Laboratory Report Ordering Provider Test Date Status ANASTASIA SAMUEL 06/23/2024 07:23:14 Final Based on ACOG guideline, ges tational diabetes mellitus is diagnosed when any of the following is met:
Fasting is greater than or equal to 95 mg/dL
1 hour is greater than or equal to 180 mg/dL
2 hour is greater than or equal to 155 mg/dL
3 hour is greater than or equal to 140 mg/dL Observation Date Value Abnormality Reference (Units ) Status Glucose, fasting 06/23/2024 07:23:14 82 70- 94 (mg/dL) Final Performing Location [facility] [place] [address] [place] [address]
--- OUTSIDE RECORDS SUMMARY | 2024-08-19 17:27 | External Medical Summary ---
Author Name Unknown Address Unknown Organization [id number]:LABORATORY [facility] - [address] [place] [address] Laboratory Report Ordering Provider Test Date Status ANASTASIA SAMUEL 05/30/2024 16:48:37 Final Observation Date Value Abnormality Reference (Units ) Status TSH 05/30/2024 16:48:37 1.61 0.27-4.20 (uIU/mL) Final Performing Location LABORATORY [facility] - [address] [place] [address]
--- OUTSIDE RECORDS SUMMARY | 2024-08-19 17:27 | External Medical Summary | Summary of Care ---
Author Name Unknown Organization [facility] Address [address] [facility] [place] [address] Phone [phone] Care Team Providers Care Ed Physicians Name Role Phone Judy Goss DO Primary Care Provider Reason for Visit * Reason Comments Return Visit 27w4d Encounter Details Date Type Department Care Team (Late st Contact Info) Description 05/30/2024 11:30 AM EDT Office Visit Gynecology/Obst[facility] [address] [facility] [place] [address] Radha Paula PA-C [address] [facility] [place] [address] resulting from in vitro fertilization, antepartum* Allergies No known active allergiesdocumented as of this encounter (statuses as of 05/30/2024) Medications Medication Sig Dispensed Refills Start Date End Date Status Folic Acid 0.8 MG Oral Capsule Take by mouth. Active 6.75-0.2 MG Oral Tablet Take by mouth. Active Breast Pump status of mother Z39.1 1 Each 05/30/2024 Active documented as of this encounter (statuses as of 05/30/2024) Active Problems Problem Noted Date Diagnosed Date resulting from in vitro fertilization, antepartum 02/08/2024 [...] as of this encounter (statuses as of 05/30/2024) Resolved Problems Problem Noted Date Diagnosed Date [...] as of this encounter (statuses as of 05/30/2024) Immunizations Name Administration Dates Next Due COVID-19 mRNA, LNP-s, No Pre serve, 2-Dose Series (Moderna) 03/12/2021,02/05/2021 Hepatitis B Vaccine, Recombi nant, Adjuvanted, 20 mcg/mL (Heplisav-B) 03/20/2023,02/18/2023 Hepatitis B, 0-19 yrs 08/25/2001,06/01/2000,04/04 PPD [...] = 0.6 oz pur e alcohol) occasional [place] Depression Scale Answer Date Recorded [place] Depression Scale Total 0 02/08/2024 The thought [...] Sign Reading Time Taken Comments Blood Pressure 114/62 05/30/2024 11:37 AM EDT Pulse - - Temperature 36.8 C (98.2 F) 05/30/2024 11:37 AM E DT Respiratory Rate - - Oxygen Saturation - - Inhaled Oxygen Concentration - - Weight 64.6 kg (142 lb 6.4 oz) 05/30/2024 11:37 AM EDT Height - - Body Mass Index 22.98 02/04/2024 1:33 PM EDT documented in this encounter Progress Notes * Aminta Chanel CMA - 05/30/2024 12:02 PM EDT Pre-Administration Time Out Procedure Performed: Yes Patient Identified (Ask Name/Date of ): Yes Does the patient have a fever greater than 101 degrees today? No Patient allergic to latex? No Has the patient ever fainted after receiving an injection? No VFC Stock: No Immunization(s) verified: Yes, Immunization Name: Tdap (Adacel), VIS Sheet(s) given: Yes Verified Side and Site: Yes Verified Shot(s) with Parent(s)/Patient: Yes * Radha Paula PA-C - 05/30/2024 11:49 AM EDT Arpita Arzate is a 33 year old female here for her routine OB appointment at 27w4d Her Estimated Date of Delivery: 08/25/24 REVIEW OF SYSTEMS: She affirms movement. Denies vaginal bleeding, LOF, contractions, N/V, headaches PHYSICAL EXAM: Filed Vitals: 05/30/24 1137 BP: 114/62 Temp: 36.8 C (98.2 F) TempSrc: Tympanic Weight: 64.6 kg (142 lb 6.4 oz) +FHT 140s Fundal height 27 ASSESSMENT/PLAN: resulting from in vitro fertilization, antepartum (Primary) - TDAP (AGE 7 AND OLDER), ADACEL Other orders - Breast Pump; status of mother Z39.1 Supervision of - recommended tdap vaccine - patient agreeable today - planning to complete CBC, GTT - she desires prescription for a breast pump - partner had a vasectomy, achieved via IVF - rhogam is not needed d/t O+ blood type - labor precautions and kick counts reviewed - RTO in 2 weeks Radha Paula PA-C documented in this encounter Nursing Notes * Aminta Chanel CMA - 05/30/2024 11:36 AM EDT Chief Complaint Patient presents with Return Visit 27w4d documented in this encounter Plan of Treatment Upcoming Encounters Date Type Department Care Team (Late st Contact Info) Description 06/14/2024 11:30 AM EDT Office Visit Gynecology/Obstetrics, [place] [address] [place] [phone] Radha Paula PA-C [address] [place] [address] 07/07/2024 2:30 PM EDT Imaging Maternal Medicine Imaging, [address] [place] [phone] Health Maintenance Due Date Last Done Comments Depression Screening 2001 Pap Smear 12/09/2018 12/10/2015 Cervical Cancer Screening 2019 HPV/Co-Test 2019 COVID-19 Vaccine ( season) 2023 03/12/2021, 02/05/2021 Influenza Vaccine (FLU shot) (#1) 2024 07/28/2023, 08/18/2022, 08/04/2021, Additional history exists DTaP,Tdap,and Td Vaccines (4 - Td or Tdap) 05/30/2034 [...] resulting from in vitro fertilization, antepartum- Primary documented in this encounter Care Teams Ed Physicians Relationship Specialty Start Date End Date Judy Goss DO [address] [facility] [place] [address] PCP - General Family Medicine 12/10/15 documented as of this encounter
--- OUTSIDE RECORDS SUMMARY | 2024-08-19 17:27 | External Medical Summary | Summary of Care ---
Author Name Unknown Organization [facility] Address [address] [facility] [place] [address] Phone [phone] Care Team Providers Care Traffic Supervisor Name Role Phone Judy Goss DO Primary Care Provider Reason for Visit * Reason Comments Outpatient Testing Encounter Details Date Type Department Care Team (Late st Contact Info) Description 06/23/2024 7:00 AM EDT Laboratory Laboratory, [facility] [address] [place] [phone] [facility], Lab [address] [place] [address] [facility], Lab Excess [address] [place] [address] Abnormal glucose tolerance in mother complicating Allergies No known active allergiesdocumented as of this encounter (statuses as of 06/23/2024) Medications Medication Sig Dispensed Refills Start Date [...] as of this encounter (statuses as of 06/23/2024) Active Problems Problem Noted Date Diagnosed Date [...] as of this encounter (statuses as of 06/23/2024) Resolved Problems Problem Noted Date Diagnosed Date [...] as of this encounter (statuses as of 06/23/2024) Immunizations Name Administration Dates Next Due COVID-19 [...] money to get more. Never true 06/14/2024 [place] Depression Scale Answer Date Recorded [place] Depression Scale Total 2 06/14/2024 The thought [...] on file documented as of this encounter Plan of Treatment Upcoming Encounters Date Type Department Care Team (Late st Contact Info) Description 06/29/2024 11:45 AM EDT Office Visit Gynecology/Obstetrics, [place] [address] [place] [address] Radha Paula PA-C [address] [place] [address] 07/14/2024 1:45 PM EDT Imaging Maternal Medicine [facility] [address] [facility] [place] [phone] Pending Results Name Type Priority Associated Diagnoses Date /Time GESTATIONAL GLUCOSE TOLERANCE, 3 HOUR Lab Routine Abnormal glucose tolerance in mother complicating 06/23/2024 7:23 AM EDT 100-G GESTATIONAL GLUCOSE, FASTING Lab Routine Abnormal glucose tolerance in mother complicating 06/23/2024 7:23 AM EDT 100-G GESTATIONAL GLUCOSE, 1 HOUR Lab Routine Abnormal glucose tolerance in mother complicating 06/23/2024 8:26 AM EDT 100-G GESTATIONAL GLUCOSE, 2 HOUR Lab Routine Abnormal glucose tolerance in mother complicating 06/23/2024 9:30 AM EDT 100-G GESTATIONAL GLUCOSE, 3 HOUR Lab Routine Abnormal glucose tolerance in mother complicating 06/23/2024 10:28 AM EDT Health Maintenance Due Date Last Done Comments [...] as of this encounter Visit Diagnoses Diagnosis Abnormal glucose tolerance in mother complicating Abnormal maternal glucose tolerance, complicating , childbirth, or the puerperium, unspecified as to episode of care documented in this encounter Care Teams Traffic Supervisor Relationship Specialty Start Date End Date Judy Goss DO [address] [address] PCP - General Family Medicine 12/10/15 documented as of this encounter
--- OUTSIDE RECORDS SUMMARY | 2024-08-19 17:27 | External Medical Summary ---
Author Name Unknown Address Unknown Organization [id number]:[facility] [place] [address] [place] [address] Laboratory Report Ordering Provider Test Date Status ANASTASIA SAMUEL 05/30/2024 16:48:37 Final Observation Date Value Abnormality Reference (Units ) Status Iron 05/30/2024 16:48:37 78 33-151 (ug/dL) Final Iron-binding capacity 05/30/2024 16:48:37 437 Above high normal 250-425 (ug/dL) Final Transferrin Sat % 05/30/2024 16:48:37 18 15-55 (%) Final Performing Location [facility] [place] [address] [place] [address]
--- OUTSIDE RECORDS SUMMARY | 2024-08-19 17:27 | External Medical Summary | Summary of Care ---
Author Name Unknown Organization [facility] Address [address] [facility] [place] [address] Phone [phone] Care Team Providers Care Ore Smelter Name Role Phone Judy Goss DO Primary Care Provider Encounter Details Date Type Department Care Team (Late st Contact Info) Description 05/11/2024 Orders Only PATIENT PORTAL DO NOT DELETE THIS DEPT USED BY [place] [id number] Allergies No known active allergiesdocumented as of this encounter (statuses as of 05/11/2024) Medications Medication Sig Dispensed Refills Start Date End Date Status Folic Acid 0.8 MG Oral Capsule Take by mouth. Active 6.75-0.2 MG Oral Tablet Take by mouth. Active documented as of this encounter (statuses as of 05/11/2024) Active Problems Problem Noted Date Diagnosed Date [...] as of this encounter (statuses as of 05/11/2024) Resolved Problems Problem Noted Date Diagnosed Date [...] as of this encounter (statuses as of 05/11/2024) Immunizations Name Administration Dates Next Due COVID-19 [...] 06/24/2016 TDAP (age 10 and older)(Boostrix) 10/11/2020,07/2010 Varicella Vaccine (Chicken Pox) 04/02/2015,03/02 documented as of this encounter Social History Tobacco Use Types Packs/Day Years Used Date Smoking Tobacco: Never Smokeless Tobacco: Never Alcohol Use Standard Drinks/Week Comments Not Currently 0 (1 standard drink = 0.6 oz pur e alcohol) occasional [place] Depression Scale Answer Date Recorded [place] Depression Scale Total 0 02/08/2024 The thought [...] Description 05/30/2024 11:30 AM EDT Office Visit Gynecology/Obstetrics, [place] [address] [place] [address] Radha Paula PA-C [address] [place] [address] 07/07/2024 2:30 PM EDT Imaging Maternal Medicine Imaging, [facility] [address] [facility] [place] [phone] Health Maintenance Due Date Last Done Comments Depression Screening 2001 Pap Smear 12/09/2018 12/10/2015 Cervical Cancer Screening 2019 HPV/Co-Test 2019 COVID-19 Vaccine ( season) 2023 03/12/2021, 02/05/2021 Influenza Vaccine (FLU shot) (#1) 2024 07/28/2023, 08/18/2022, 08/04/2021, Additional history exists DTaP,Tdap,and Td Vaccines (3 - Td or Tdap) 10/11/2030 10/11/2020, 12/12/2009 Hepatitis B Vaccine Completed 03/20/2023, [...] Not on filedocumented as of this encounter Care Teams Ore Smelter Relationship Specialty Start Date End Date Judy Goss DO [address] [facility] [place] [address] PCP - General Family Medicine 12/10/15 documented as of this encounter
--- OUTSIDE RECORDS SUMMARY | 2024-08-19 17:27 | External Medical Summary | Summary of Care ---
Author Name Unknown Organization [facility] Address [address] [facility] [address] Phone [phone] Care Team Providers Care Buckle Sorter Name Role Phone Judy Goss DO Primary Care Provider Reason for Visit * Reason Comments Return Visit 29w5d Encounter Details Date Type Department Care Team (Late st Contact Info) Description 06/14/2024 11:30 AM EDT Office Visit Gynecology/Obstetric Pat[place] carlson [address] [place] [address] Radha Paula PA-C [address] [facility] [place] [address] resulting from in vitro fertilization, antepartum*; Antepartum anemia complicating ; Abnormal glucose tolerance in mother complicating Allergies No known active allergiesdocumented as of this encounter (statuses as of 06/14/2024) Medications Medication Sig Dispensed Refills Start Date [...] as of this encounter (statuses as of 06/14/2024) Active Problems Problem Noted Date Diagnosed Date [...] as of this encounter (statuses as of 06/14/2024) Resolved Problems Problem Noted Date Diagnosed Date [...] as of this encounter (statuses as of 06/14/2024) Immunizations Name Administration Dates Next Due COVID-19 [...] money to get more. Never true 06/14/2024 [place] Depression Scale Answer Date Recorded [place] Depression Scale Total 0 02/08/2024 The thought of harming myself has occurred to me . Never 02/08/2024 Childcare Answer Date Recorded Do you feel [...] Sign Reading Time Taken Comments Blood Pressure 98/60 06/14/2024 11:39 AM EDT Pulse - - Temperature 36.2 C (97.1 F) 06/14/2024 11:39 AM E DT Respiratory Rate - - Oxygen Saturation - - Inhaled Oxygen Concentration - - Weight 64.7 kg (142 lb 9.6 oz) 06/14/2024 11:39 AM EDT Height - - Body Mass Index 23.02 02/04/2024 1:33 PM EDT documented in this encounter Progress Notes * Radha Paula PA-C - 06/14/2024 11:42 AM EDT Arpita Arzate is a 33 year old female here for her routine OB appointment at 29w5d Her Estimated Date of Delivery: 08/25/24 REVIEW OF SYSTEMS: She affirms movement. Denies vaginal bleeding, LOF, contractions, N/V, headaches Planning to complete 3 hour GTT. Has not yet started iron - has been more consistent with vitamin since last CBC. Scheduled for growth scan on 07/14. PHYSICAL EXAM: Filed Vitals: 06/14/24 1139 BP: 98/60 Temp: 36.2 C (97.1 F) Weight: 64.7 kg (142 lb 9.6 oz) +FHT 140s Fundal height 30 ASSESSMENT/PLAN: resulting from in vitro fertilization, antepartum (Primary) Antepartum anemia complicating Abnormal glucose tolerance in mother complicating Follow Up: Return in about 2 weeks (around 06/28/2024) for MARCY. | For: MARCY Supervision of - labor precautions and kick counts reviewed - RTO in 2 weeks Radha Paula PA-C documented in this encounter Nursing Notes * Paula Del Rio LPN - 06/14/2024 11:40 AM EDT Chief Complaint Patient presents with Return Visit 29w5d Pt is with no concerns. Pt has completed 28 wk labs but has not completed 3 hour glucose test yet. Tdap done 05/30/2024 Declines flu today Paula Del Rio LPN documented in this encounter Plan of Treatment Upcoming Encounters Date Type Department Care Team (Late st Contact Info) Description 06/29/2024 11:45 AM EDT Office Visit Gynecology/Obstetrics, [place] [address] [place] [address] Radha Paula PA-C [address] [place] [address] 07/14/2024 1:45 PM EDT Imaging Maternal Medicine [facility], [facility] [address] [facility] [place] [address] Health Maintenance Due Date Last Done Comments Depression Screening 2001 Pap Smear 12/09/2018 12/10/2015 Cervical Cancer Screening 2019 HPV/Co-Test 2019 COVID-19 Vaccine ( season) 2024 03/12/2021, 02/05/2021 Influenza Vaccine (FLU shot) (#1) [...] care documented in this encounter Care Teams Buckle Sorter Relationship Specialty Start Date End Date Judy Goss DO [address] [facility] [place] [address] PCP - General Family Medicine 12/10/15 documented as of this encounter"
--- OUTSIDE RECORDS SUMMARY | 2024-08-19 17:27 | External Medical Summary | Summary of Care ---
Author Name Unknown Organization [facility] Address [address] [place] [facility] [place] [address] Phone [phone] Care Team Providers Care Replenishment Specialist Name Role Phone Judy Goss DO Primary Care Provider Reason for Visit * Reason Comments Outpatient Testing Encounter Details Date Type Department Care Team (Late st Contact Info) Description 05/30/2024 4:10 PM EDT Laboratory Laboratory, [facility] [address] [place] [phone] [facility], Lab [address] [place], [place] [phone] 23 weeks gestation of Allergies No known active [...] = 0.6 oz pur e alcohol) occasional [place] Depression Scale Answer Date Recorded [place] Depression Scale Total 0 02/08/2024 The thought [...] 06/14/2024 11:30 AM EDT Office Visit Gynecology/Obstetrics, [place] [address] [place] [address] Radha Paula PA-C [address] [place] [address] 07/07/2024 2:30 PM EDT Imaging Maternal Medicine Imaging, [address] [place] [phone] Pending Results Name Type Priority Associated Diagnoses Date /Time CBC WITH WBC DIFFERENTIAL AND ANEMIA REFLEX WORKUP Lab Routine 23 weeks gestation of 05/30/2024 4:48 PM EDT 50-G GESTATIONAL GLUCOSE, 1 HOUR Lab Routine 23 weeks gestation of 05/30/2024 4:48 PM EDT SYPHILIS ANTIBODY SCREEN WITH REFLEX TO RPR Lab Routine 23 weeks gestation of 05/30/2024 4:48 PM EDT ANEMIA CBC Lab Routine 23 weeks gestation of 05/30/2024 4:48 PM EDT DIFFERENTIAL, AUTOMATED Lab Routine 23 weeks gestation of 05/30/2024 4:48 PM EDT ANEMIA REFLEX CHEMISTRY HOLD Lab Routine 23 weeks gestation of 05/30/2024 4:48 PM EDT SYPHILIS ANTIBODY SCREEN Lab Routine 23 weeks gestation of 05/30/2024 4:48 PM EDT Health Maintenance Due Date Last Done [...] as of this encounter Visit Diagnoses Diagnosis 23 weeks gestation of state, incidental documented in this encounter Care Teams Replenishment Specialist Relationship Specialty Start Date End Date Judy Goss DO [address] [facility] [address] PCP - General Family Medicine 12/10/15 documented as of this encounter
--- OUTSIDE RECORDS SUMMARY | 2024-08-19 17:27 | External Medical Summary ---
Author Name Unknown Address Unknown Organization [id number]:[place] [place] [address] [place] [address] Laboratory Report Ordering Provider Test Date Status ANASTASIA SAMUEL 06/23/2024 09:30:50 Final Observation Date Value Abnormality Reference (Units ) Status Glucose, 2-hr post glucose challenge 06/23/2024 09:30:50 113 70-154 (mg/dL) Final Performing Location [facility] [place] [address] [place] [address]
--- OUTSIDE RECORDS SUMMARY | 2024-08-19 17:27 | External Medical Summary ---
Author Name Unknown Address Unknown Organization [id number]:LAB[facility]ATORY [facility] - [address] [facility] [address] [place] [address] Laboratory Report Ordering Provider Test Date Status ANASTASIA SAMUEL 05/30/2024 16:48:37 Final Observation Date Value Abnormality Reference (Units ) Status Ferritin 05/30/2024 16:48:37 32 13-150 (ng /mL) Final Performing Location [facility]ATORY [facility] - [address] [place] [address]
--- OUTSIDE RECORDS SUMMARY | 2024-08-19 17:27 | External Medical Summary ---
Author Name Unknown Address Unknown Organization [id number]:[facility] [place] [address] [place] [address] Laboratory Report Ordering Provider Test Date Status ANASTASIA SAMUEL 05/30/2024 16:48:37 Final Observation Date Value Abnormality Reference (Units ) Status Folic Acid 05/30/2024 16:48:37 6.8 >4.5 (ng/ mL) Final Performing Location LABORATORY [facility] - [address] [place] [address]
--- OUTSIDE RECORDS SUMMARY | 2024-08-19 17:27 | External Medical Summary ---
Author Name Unknown Address Unknown Organization [id number][place] [facility] [place] [address] [place] [address] Laboratory Report Ordering Provider Test Date Status ANASTASIA SAMUEL 05/30/2024 16:48:37 Final Observation Date Value Abnormality Reference (Units ) Status Vitamin B12 05/30/2024 16:48:37 [phone] (pg/mL) Final Performing Location [place] [facility] [place] [address] [place] [address]
--- OUTSIDE RECORDS SUMMARY | 2024-08-19 17:27 | External Medical Summary ---
Author Name Unknown Address Unknown Organization [id number]:LABORATORY [facility] [place] - [address] [place] [address] Laboratory Report Ordering Provider Test Date Status ANASTASIA SAMUEL 05/30/2024 16:48:37 Final Observation Date Value Abnormality Reference (Units ) Status WBC, Total 05/30/2024 16:48:37 12.28 Above high normal 4 .00-10.80 (K/uL) Final RBC 05/30/2024 16:48:37 3.67 3.85-5.15 (M/uL) Final Hemoglobin 05/30/2024 16:48:37 11.4 Below low normal 12 .0-15.3 (g/dL) Final Anemia reflex testing trigge rs on a HGB < 12.0 for Females and HGB < 13.0 for Males in accordance with the WHO Anemia Guidelines
Anemia reflex testing triggers on a HGB < 12.0 for Females and HGB < 13.0 for Males in accordance with the WHO Anemia Guidelines HCT 05/30/2024 16:48:37 35.2 Below low normal 36. 0-45.2 (%) Final MCV 05/30/2024 16:48:37 95.9 81.5-97.5 (fL) Final MCH 05/30/2024 16:48:37 31.1 27.0-34.0 (pg) Final MCHC 05/30/2024 16:48:37 32.4 32.0-36.0 (g/dL) Final RDW 05/30/2024 16:48:37 13.4 11.5-15.5 (%) Final Platelets 05/30/2024 16:48:37 216 140-400 (K /uL) Final MPV 05/30/2024 16:48:37 10.5 6.6-11.1 ( fL) Final Nucleated erythrocytes/100 leukocytes [Ratio] in Blood by Automated count 05/30/2024 16:48:37 0 <=0 (/100 WBCs) Final Performing Location LABORATORY [facility] [place] - [address] [facility] [address]
--- OUTSIDE RECORDS SUMMARY | 2024-08-19 17:27 | External Medical Summary ---
Author Name Unknown Address Unknown Organization [id number]:LABORATORY [facility] [place] - [address] [place] [address] Laboratory Report Ordering Provider Test Date Status ANASTASIA SAMUEL 05/30/2024 16:48:37 Final Observation Date Value Abnormality Reference (Units ) Status Treponema pallidum Ab [Presence] in Serum by Immunoassay 05/30/2024 16:48:37 Nonreactive Nonreactive Final No serologic evidence of syp hilis. No additional testing clinicially indicated at this time. Consider repeat testing in 2-4 weeks if acute or primary syphilis is suspected. Performing Location LABORATORY [facility] [place] - [address] [place] [address]
--- OUTSIDE RECORDS SUMMARY | 2024-08-19 17:27 | External Medical Summary ---
Author Name Unknown Address Unknown Organization [id number]:LABORATORY [facility] [place] [address] [place] [address] Laboratory Report Ordering Provider Test Date Status ANASTASIA SAMUEL 06/23/2024 08:26:23 Final Observation Date Value Abnormality Reference (Units ) Status Glucose [Mass/volume] in Serum or Plasma --1 hour post dose glucose 06/23/2024 08:26:23 117 70-179 (mg/dL) Final Performing Location LABORATORY [facility] [place] - [address] [place] [address]
--- OUTSIDE RECORDS SUMMARY | 2024-08-19 17:27 | External Medical Summary | Summary of Care ---
Author Name Unknown Organization [facility] Address [address] [facility] [place] [address] Phone [phone] Care Team Providers Care Admission Nurse Name Role Phone Judy Goss DO Primary Care Provider Reason for Visit * Reason Comments Return Visit 27w4d Encounter Details Date Type Department Care Team (Late st Contact Info) Description 05/30/2024 11:30 AM EDT Office Visit Gynecology/Obst[facility] [address] [facility] [place] [address] Radha Paula PA-C [address] [facility] [place] [address] resulting from in vitro fertilization, [...] = 0.6 oz pur e alcohol) occasional [place] Depression Scale Answer Date Recorded [place] Depression Scale Total 0 02/08/2024 The thought [...] 06/14/2024 11:30 AM EDT Office Visit Gynecology/Obstetrics, [place] [address] [place] [address] Radha Paula PA-C [address] [place] [address] 07/07/2024 2:30 PM EDT Imaging Maternal Medicine Imaging, [address] [place] [phone] Health Maintenance Due Date Last Done Comments [...] Primary documented in this encounter Care Teams Admission Nurse Relationship Specialty Start Date End Date Judy Goss DO [address] [facility] [place] [address] PCP - General Family Medicine 12/10/15 documented as of this encounter
--- OUTSIDE RECORDS SUMMARY | 2024-08-19 17:27 | External Medical Summary ---
Author Name Unknown Address Unknown Organization [id number]:LABORATORY [facility] [place] [address] [place] [address] Laboratory Report Ordering Provider Test Date Status ANASTASIA SAMUEL 05/30/2024 16:48:37 Final Observation Date Value Abnormality Reference (Units ) Status SYNC LEUKOCYTES IN BLOOD BY AUTOMATED COUNT 05/30/2024 16:48:37 12.28 Above high normal 4.00-10.80 (K/uL) Final Segs 05/30/2024 16:48:37 76.5 Above high normal 40.0-75.0 (%) Final Lymphs % 05/30/2024 16:48:37 14.7 Below low normal 18.0-42.0 (%) Final Monos 05/30/2024 16:48:37 5.8 1.0-11.0 (%) Final Eosinophils 05/30/2024 16:48:37 1.5 0.0-6.0 (%) Final Basos 05/30/2024 16:48:37 0.5 0.0-2.0 (%) Final Immature Granulocyte, Percent 05/30/2024 16:48:37 1.0 0.0-2.0 (%) Final Absolute Segs 05/30/2024 16:48:37 9.39 Above high normal 1.80-7.70 (K/uL) Final Lymphs, absolute 05/30/2024 16:48:37 1.81 1.00-4.80 (K/ul) Final Monos, Abs 05/30/2024 16:48:37 0.71 0.00-1.10 (K/uL) Final Eos, Abs 05/30/2024 16:48:37 0.19 0.00-0.70 (K/uL) Final Basos, Abs 05/30/2024 16:48:37 0.06 0.00-0.20 (K/uL) Final Immature Granulocytes, Number 05/30/2024 16:48:37 0.12 0.00-0.20 (K/uL) Final Performing Location LABORATORY [facility] [place] - [facility] [address] [facility] [address]
--- OUTSIDE RECORDS SUMMARY | 2024-08-19 17:27 | External Medical Summary ---
Author Name Unknown Address Unknown Organization [id number]:[place] [facility] [place] [address] [place] [address] Laboratory Report Ordering Provider Test Date Status ANASTASIA SAMUEL 05/30/2024 16:48:37 Final Observation Date Value Abnormality Reference (Units ) Status Glucose [Moles/volume] in Serum or Plasma --1 hour post 50 g glucose PO 05/30/2024 16:48:37 155 Above high normal 70-129 (mg/dL) Final Performing Location [facility] [place] [address] [place] [address]
--- OUTSIDE RECORDS SUMMARY | 2024-08-19 17:27 | External Medical Summary ---
Author Name Unknown Address Unknown Organization [id number]:LAB[facility]ATORY [facility] [place] - [address] [place] [address] Laboratory Report Ordering Provider Test Date Status ANASTASIA SAMUEL 05/30/2024 16:48:37 Final Observation Date Value Abnormality Reference (Units ) Status Creatinine 05/30/2024 16:48:37 0.5 0.5-1.0 (mg/dL) Final Glomerular filtration rate/1.73 sq M.predicted [Volume Rate/Area] in Serum, Plasma or Blood by Creatinine-based formula (CKD-EPI) 05/30/2024 16:48:37 >90 >=60 (mL/min) Final eGFR is calculated based on the CKD-EPI 2020 equation. Performing Location LAB[facility]ORY [facility] [place] - [address] [place] [address]
--- OUTSIDE RECORDS SUMMARY | 2024-08-19 17:27 | External Medical Summary ---
Author Name Unknown Address Unknown Organization K01:[facility]ORY [facility] [place] - [facility] [place] [address] Laboratory Report Ordering Provider Test Date Status ANASTASIA SAMUEL 05/30/2024 16:48:37 Final Observation Date Value Abnormality Reference (Units ) Status Retic, % (auto) 05/30/2024 16:48:37 2.70 Above high normal 0.80-1.90 (%) Final Reticulocytes, Absolute 05/30/2024 16:48:37 98.3 31.3-100.1 (K/uL) Final Reticulocyte fraction, immature 05/30/2024 16:48:37 26.3 Above high normal 2.5-20.6 (%) Final Reticulocyte HGB 05/30/2024 16:48:37 34.3 29.7-37.4 (pg) Final Performing Location LABORATORY [facility] [place] [address] [place] [address]
--- OUTSIDE RECORDS SUMMARY | 2024-08-19 17:28 | External Medical Summary | Summary of Care ---
Author Name Unknown Organization [facility] Address [address] [facility] [place] [address] Phone [phone] Care Team Providers Care Cephalometric Analyst Name Role Phone Judy Goss DO Primary Care Provider Reason for Visit * Reason Comments Return Visit 15w 4d Encounter Details Date Type Department Care Team (Late st Contact Info) Description 03/07/2024 11:30 AM EDT Office Visit [facility]necology/[facility]st[facility] [place] [address] Mary Ken PA-C [address] [facility] [place], [place] [phone] 15 weeks gestation of *; resulting from in vitro fertilization, antepartum Allergies No known active allergiesdocumented as of this encounter (statuses as of 03/07/2024) Medications Medication Sig Dispensed Refills Start Date End Date Status Folic Acid 0.8 MG Oral Capsule Take by mouth. Active 6.75-0.2 MG Oral Tablet Take by mouth. Active documented as of this encounter (statuses as of 03/07/2024) Active Problems Problem Noted Date Diagnosed Date resulting from in vitro fertilization, antepartum 02/08/2024 Overview: Patient's egg and partner's sperm Embryo Transfer 12/08/23 PGT-A (Preimplantation Genetic Testing for Aneuploidy) completed Last Assessment & Plan: The anatomy that was visualized is appropriate for the gestational age. Hyperlipidemia 10/28/2020 HPV (human papilloma virus) infection 10/05/2018 Estimated Date of Delivery Comme nts Yes 08/25/2024 Based on Embryo Transfer documented as of this encounter (statuses as of 03/07/2024) Resolved Problems Problem Noted Date Diagnosed Date [...] as of this encounter (statuses as of 03/07/2024) Immunizations Name Administration Dates Next Due COVID-19 [...] = 0.6 oz pur e alcohol) occasional [place] Depression Scale Answer Date Recorded [place] Depression Scale Total 0 02/08/2024 The thought of harming myself has occurred to me . Never 02/08/2024 Estimated Date of Delivery Comme nts Yes [...] Sign Reading Time Taken Comments Blood Pressure 96/60 03/07/2024 11:37 AM EDT Pulse - - Temperature - - Respiratory Rate - - Oxygen Saturation - - Inhaled Oxygen Concentration - - Weight 60.1 kg (132 lb 6.4 oz) 03/07/2024 11:37 AM EDT Height - - Body Mass Index 21.37 02/04/2024 1:33 PM EDT documented in this encounter Progress Notes * Mary Ken PA-C - 03/07/2024 11:40 AM EDT Arpita Arzate is a 33 year old female here for her routine OB appointment at 15w4d. Her Estimated Date of Delivery: 08/25/24 REVIEW OF SYSTEMS: She affirms some movement. Denies vaginal bleeding, LOF, N/V, + headaches, likely due to stress with school/work and hydration . PHYSICAL EXAM: Filed Vitals: 03/07/24 1137 BP: 96/60 Weight: 60.1 kg (132 lb 6.4 oz) Total weight gain # 0.635 kg (1 lb 6.4 oz) ASSESSMENT/PLAN: (O09.819) resulting from in vitro fertilization, antepartum (Z3A.15) 15 weeks gestation of - following with MFM - anatomy u/s scheduled with MFM - RTO in 4 weeks Mary Ken PA-C documented in this encounter Nursing Notes * Beatriz Jc LPN - 03/07/2024 11:38 AM EDT Chief Complaint Patient presents with Return Visit 15w 4d Denies problems/concerns. Scheduled with MFM on 04/15/24 documented in this encounter Plan of Treatment Upcoming Encounters Date Type Department Care Team (Late st Contact Info) Description 04/04/2024 11:30 AM EDT Office Visit Gynecology/Obstetrics, [place] [address] [place] [address] Mary Ken PA-C [address] [place], [place] [phone] 04/15/2024 1:30 PM EDT Office Visit Roof Truss Detailer OB Maternal Medicine [facility] [place] [address] [place] [address] Dr Morse [address] [place] [address] Desiree Zamudio, [address] [place] [address] 04/15/2024 1:30 PM EDT Imaging Maternal Medicine [facility] [place] [address] [place] [address] Dr Morse [address] [place] [address] Scheduled Orders Name Type Priority Associated Diagnoses Orde r Schedule QNATAL ADVANCED (QUEST) Lab Routine resulting from in vitro fertilization, antepartum Expected: 03/07/2024, Expires: 03/07/2025 Health Maintenance Due Date Last Done Comments Depression Screening 2001 Pap Smear 12/09/2018 12/10/2015 Cervical Cancer Screening 2019 HPV/Co-Test 2019 COVID-19 Vaccine (2022- season) 2023 03/12/2021, 02/05/2021 DTaP,Tdap,and Td Vaccines (3 - Td or Tdap) 10/11/2030 10/11/2020, 12/12/2009 Hepatitis B Completed 03/20/2023, 02/02, 08/25/2001, Additional history exists Influenza Vaccine (FLU shot) Completed , 08/18/2022, 08/04/2021, Additional history exists GARDASIL-HPV IMMUNIZATION SERIES Aged Out No longer eligible based on [...] as of this encounter Visit Diagnoses Diagnosis 15 weeks gestation of - Primary state, incidental resulting from in vitro fertilization, antepartum documented in this encounter Care Teams Cephalometric Analyst Relationship Specialty Start Date End Date Judy Goss DO [address] [facility] [place] [address] PCP - General Family Medicine 12/10/15 documented as of this encounter
--- OUTSIDE RECORDS SUMMARY | 2024-08-19 17:28 | External Medical Summary | Summary of Care ---
Author Name Unknown Organization [facility] Address [address] [facility] [place] [address] Phone [phone] Care Team Providers Care Market Research Manager Name Role Phone Judy Goss DO Primary Care Provider Reason for Referral * Evaluate & Treat - Unlimited Visits (Within 10 days (routine)) - Authorized Specialty Diagnoses / Procedures Referred By Roxanne t Referred To Contact Nurse Educator Diagnoses 19 weeks gestation of Mary Ken PA-C [address] [place] [id number] Referral ID Status Reason Start Date Expiration Date Visits Requested Visits Authorized [id number] Authorized Specialty Services Required 04/04/[phone] Question Answer Referral Priority Within 10 days (routine) Where should this appointment be scheduled? [facility] County of Residence: [place] Estimated Date of Delivery: 08/25/24 Planned Location: [facility] Reason for Visit * Reason Comments Return Visit 19w4d Encounter Details Date Type Department Care Team (Late st Contact Info) Description 04/04/2024 11:30 AM EDT Office Visit Gynecology/Obstetric [place] carlson [address] [place] [address] Mary Ken PA-C [address] [place] [address] 19 weeks gestation of *; resulting from in vitro fertilization, antepartum Allergies No known active allergiesdocumented as of this encounter (statuses as of 04/04/2024) Medications Medication Sig Dispensed Refills Start Date End Date Status Folic Acid 0.8 MG Oral Capsule Take by mouth. Active 6.75-0.2 MG Oral Tablet Take by mouth. Active documented as of this encounter (statuses as of 04/04/2024) Active Problems Problem Noted Date Diagnosed Date [...] as of this encounter (statuses as of 04/04/2024) Resolved Problems Problem Noted Date Diagnosed Date [...] as of this encounter (statuses as of 04/04/2024) Immunizations Name Administration Dates Next Due COVID-19 [...] = 0.6 oz pur e alcohol) occasional [place] Depression Scale Answer Date Recorded [place] Depression Scale Total 0 02/08/2024 The thought [...] Sign Reading Time Taken Comments Blood Pressure 100/66 04/04/2024 11:36 AM EDT Pulse - - Temperature 36.8 C (98.2 F) 04/04/2024 11:36 AM E DT Respiratory Rate - - Oxygen Saturation - - Inhaled Oxygen Concentration - - Weight 61.4 kg (135 lb 6.4 oz) 04/04/2024 11:36 AM EDT Height - - Body Mass Index 21.85 02/04/2024 1:33 PM EDT documented in this encounter Progress Notes * Mary Ken PA-C - 04/04/2024 11:49 AM EDT Arpita Arzate is a 33 year old female here for her routine OB appointment at 19w4d. Her Estimated Date of Delivery: 08/25/24 REVIEW OF SYSTEMS: She affirms movement. Denies vaginal bleeding, N/V, headaches + headaches resolved PHYSICAL EXAM: Filed Vitals: 04/04/24 1136 BP: 100/66 Temp: 36.8 C (98.2 F) Weight: 61.4 kg (135 lb 6.4 oz) Total weight gain # 1.996 kg (4 lb 6.4 oz) ASSESSMENT/PLAN: (O09.819) resulting from in vitro fertilization, antepartum (Z3A.19) 19 weeks gestation of - anatomy u/s with MFM next week - discussed MSAFP and role in detecting open neural tube defects. Patient will wait for anatomy scan at this time - RTO in 4 weeks Mary Ken PA-C documented in this encounter Nursing Notes * Paula Del Rio LPN - 04/04/2024 11:38 AM EDT Chief Complaint Patient presents with Return Visit 19w4d Pt is with no concerns. Agreeable to NFP. Anatomy with MFM next week. Paula Del Rio LPN documented in this encounter Plan of Treatment Upcoming Encounters Date Type Department Care Team (Late st Contact Info) Description 04/15/2024 1:30 PM EDT Office Visit Board Of Education Secretary OB Maternal Medicine [facility] [address] [place] [address] [address] [place] [address] LizzDesiree Padillai, DO [address] [place] [address] 04/15/2024 1:30 PM EDT Imaging Maternal Medicine [facility] [address] [place] [address] [address] [facility] [place] [address] 05/02/2024 11:45 AM EDT Office Visit Gynecology/Obstetrics, [place] [address] [facility] [place] [address] Mary Ken PA-C [address] [facility] [place] [id number] Scheduled Referrals Name Type Priority Associated Diagnoses Orde r Schedule [facility] PROGRAM REFERRAL OP Referral Within 10 days (routine) 19 weeks gestation of Ordered: 04/04/2024 Health Maintenance Due Date Last Done Comments Depression Screening 2001 Pap Smear 12/09/2018 12/10/2015 Cervical Cancer Screening 2019 HPV/Co-Test 2019 COVID-19 Vaccine ( season) 2023 03/12/2021, 02/05/2021 Influenza Vaccine (FLU shot) (#1) 2024 07/28/2023, 08/18/2022, 08/04/2021, Additional history exists DTaP,Tdap,and Td Vaccines (3 - Td or Tdap) 10/11/2030 10/11/2020, 12/12/2009 Hepatitis B Completed 03/20/2023, 02/02, 08/25/2001, Additional history exists GARDASIL-HPV IMMUNIZATION SERIES Aged [...] as of this encounter Visit Diagnoses Diagnosis 19 weeks gestation of - Primary state, incidental resulting from in vitro fertilization, antepartum documented in this encounter Care Teams Market Research Manager Relationship Specialty Start Date End Date Judy Goss DO [address] [place] [address] PCP - General Family Medicine 12/10/15 documented as of this encounter
--- OUTSIDE RECORDS SUMMARY | 2024-08-19 17:28 | External Medical Summary | Summary of Care ---
Author Name Unknown Organization [facility] Address [address] [place] [address] Phone [phone] Care Team Providers Care Strategic Planning Specialist Name Role Phone Judy Goss DO Primary Care Provider Encounter Details Date Type Department Care Team (Latest Contact Info) Description 04/15/2024 1:30 PM EDT Office Visit Fbi Profiler OB Maternal Medicine [facility] [address] [place] [address] [address] [facility] [place] [id number] Desiree Zamudio DO [address] [place] [address] resulting from in vitro fertilization, antepartum*; Encounter for anatomic survey; Encounter for screening for congenital cardiac abnormalities in fetus; 21 weeks gestation of Allergies No known active allergiesdocumented as of this encounter (statuses as of 04/15/2024) Medications Medication Sig Dispensed Refills Start Date End Date Status Folic Acid 0.8 MG Oral Capsule Take by mouth. Active 6.75-0.2 MG Oral Tablet Take by mouth. Active documented as of this encounter (statuses as of 04/15/2024) Active Problems Problem Noted Date Diagnosed Date [...] as of this encounter (statuses as of 04/15/2024) Resolved Problems Problem Noted Date Diagnosed Date [...] as of this encounter (statuses as of 04/15/2024) Immunizations Name Administration Dates Next Due COVID-19 [...] = 0.6 oz pur e alcohol) occasional [place] Depression Scale Answer Date Recorded [place] Depression Scale Total 0 02/08/2024 The thought [...] this encounter Progress Notes * Desiree Zamudio, - 04/15/2024 3:51 PM EDT MATERNAL MEDICINE VISIT Arpita Arzate presented today at 21w1d for an ultrasound and follow-up of her high risk . She was seen for the following indications: Problem List Items Addressed This Visit resulting from in vitro fertilization, antepartum - Primary We reviewed slightly increased risk for congenital anomalies, particularly cardiac, in IVF pregnancies as well as FGR. Etiology of these complications is unknown; perhaps related to underlying cause of the infertility vs. embryo cell culture. The risk is higher when ICSI is used. echo may notdetect small VSD (<2mm) but is effective in diagnosis of most cyanotic lesions and many other clinically relevant cardiac defects. Today's exam did not suggest any evidence of cardiac abnormality. Other Visit Diagnoses Encounter for anatomic survey Encounter for screening for congenital cardiac abnormalities in fetus 21 weeks gestation of We reviewed today's ultrasound findings. 21w1d for anatomical survey with echocardiogram. Normal growth with no ultrasonic evidence of structural or cardiac abnormalities. (For full details, please refer to ultrasound report provided separately). Ms. Arzate's questions were answered to her satisfaction. She was advised to contact our office or her OB provider for any additional questions regarding her . RECOMMENDATIONS: Recommend follow up ultrasound with MFM in 12 weeks for growth secondary to above indications. Thank you for allowing us to participate in the care of this patient. Please call with any questions. I spent a total of 21 minutes on the date of service in preparation, delivery, and documentation ofthe care provided to Arpita Arzate excluding any time spent in the performance of separately billedservices. Desiree Zamudio DO 04/15/2024 3:51 PM documented in this encounter Miscellaneous Notes * Assessment & Plan Note - Desiree Zamudio DO - 04/15/2024 2:50 PM EDT Associated Problem(s): resulting from in vitro fertilization, antepartum We reviewed slightly increased risk for congenital anomalies, particularly cardiac, in IVF pregnancies as well as FGR. Etiology of these complications is unknown; perhaps related to underlying cause of the infertility vs. embryo cell culture. The risk is higher when ICSI is used. echo may notdetect small VSD (<2mm) but is effective in diagnosis of most cyanotic lesions and many other clinically relevant cardiac defects. Today's exam did not suggest any evidence of cardiac abnormality. documented in this encounter Plan of Treatment Upcoming Encounters Date Type Department Care Team (Late st Contact Info) Description 05/02/2024 11:45 AM EDT Office Visit Gynecology/Obstetrics, [place] [address] [place] [address] [place] [address] Mary Ken PA-C [address] [place] [address] 07/07/2024 2:30 PM EDT Imaging Maternal Medicine Imaging, [address] [place] [address] Scheduled Orders Name Type Priority Associated Diagnoses Orde r Schedule MFM US PREG FOLLOW UP EACH FETUS Medical Imaging Routine resulting from in vitro fertilization, antepartum Encounter for anatomic survey Encounter for screening for congenital cardiac abnormalities in fetus 21 weeks gestation of 2 Occurrences starting 04/15/2024 until 08/23/2024 Health Maintenance Due Date Last Done Comments Depression Screening 2001 Pap Smear 12/09/2018 12/10/2015 Cervical Cancer Screening 2019 HPV/Co-Test 2019 COVID-19 Vaccine (3 - season) 2023 03/12/2021, 02/05/2021 Influenza Vaccine (FLU [...] fetus 21 weeks gestation of state, incidental documented in this encounter Care Teams Strategic Planning Specialist Relationship Specialty Start Date End Date Judy Goss DO [address] [facility] [id number] PCP - General Family Medicine 12/10/15 documented as of this encounter
--- OUTSIDE RECORDS SUMMARY | 2024-08-19 17:28 | External Medical Summary ---
Author Name Unknown Address Unknown Organization K1F:[facility] - [address] [place] [address] Laboratory Report Ordering Provider Test Date Status FIFI MAI 03/11/2024 07:21:00 Final Observation Date Value Abnormality Reference (Units ) Status ABO 03/11/2024 07:21:00 O Final RH 03/11/2024 07:21:00 Positive Final Performing Location [facility] - [address] [place] [address]
--- OUTSIDE RECORDS SUMMARY | 2024-08-19 17:28 | External Medical Summary | Summary of Care ---
Author Name Unknown Organization [facility] Address [address] [place] [address] Phone [phone] Care Team Providers Care Employee Counselor Name Role Phone Judy Goss DO Primary Care Provider Encounter Details Date Type Department Care Team (Late st Contact Info) Description 02/23/2024 3:30 PM EDT Office Visit Pump Station Operator OB Maternal Medicine [facility] [address] [place] [address] [address] [facility] [place] [id number] Herrera Mckeon MD [address] [place] [address] resulting from in vitro fertilization, antepartum* Allergies No known active allergiesdocumented as of this encounter (statuses as of 02/24/2024) Medications Medication Sig Dispensed Refills Start Date End Date Status Folic Acid 0.8 MG Oral Capsule Take by mouth. Active 6.75-0.2 MG Oral Tablet Take by mouth. Active documented as of this encounter (statuses as of 02/24/2024) Active Problems Problem Noted Date Diagnosed Date [...] as of this encounter (statuses as of 02/24/2024) Resolved Problems Problem Noted Date Diagnosed Date [...] as of this encounter (statuses as of 02/24/2024) Immunizations Name Administration Dates Next Due COVID-19 [...] = 0.6 oz pur e alcohol) occasional [place] Depression Scale Answer Date Recorded [place] Depression Scale Total 0 02/08/2024 The thought [...] as of this encounter Progress Notes * Herrrea Mckeon MD - 02/23/2024 3:10 PM EDT MATERNAL MEDICINE VISIT Arpita Arzate is at 13w5d who presents to [facility] for an ultrasound and follow-up of her high risk . The patient is currently 13 weeks, 5 days gestation with an IVF here for a limited evaluation of anatomy. She is being seen today by Maternal- Medicine for the following reasons: Problem List Items Addressed This Visit resulting from in vitro fertilization, antepartum - Primary The anatomy that was visualized is appropriate for the gestational age. Relevant Orders MFM US DOPPLER COLOR FLOW MFM US DOPPLER MFM US ECHO MFM US PREG FOLLOW UP EACH FETUS RECOMMENDATIONS: Recommend surveillance starting at 36 weeks secondary to IVF . Thank you for allowing us to participate in the care of this patient. Please call with any questions. Herrera Mckeon MD 02/23/2024 3:11 PM documented in this encounter Miscellaneous Notes * Assessment & Plan Note - Herrera Mckeon MD - 02/24/2024 1:20 PM EDT Associated Problem(s): resulting from in vitro fertilization, antepartum The anatomy that was visualized is appropriate for the gestational age. documented in this encounter Plan of Treatment Upcoming Encounters Date Type Department Care Team (Late st Contact Info) Description 03/07/2024 11:30 AM EDT Office Visit Gynecology/Obstetrics, [address] [place] [address] Mary Ken PA-C [address] [facility] [place] [address] 04/15/2024 1:30 PM EDT Office Visit Pump Station Operator [facility] [address] [place] [address] [address] [place] [address] Desiree Zamudio, DO [address] [place] [address] 04/15/2024 1:30 PM EDT Imaging Maternal Medicine [facility] [address] [place] [address] Dr [address] [place] [address] Scheduled Orders Name Type Priority Associated Diagnoses Orde r Schedule MFM US DOPPLER COLOR FLOW Medical Imaging Routine resulting from in vitro fertilization, antepartum 1 Occurrences starting 02/24/2024 until 08/25/2024 MFM US DOPPLER Medical Imaging Routine resulting from in vitro fertilization, antepartum 1 Occurrences starting 02/24/2024 until 08/25/2024 MFM US ECHO Medical Imaging Routine resulting from in vitro fertilization, antepartum 1 Occurrences starting 02/24/2024 until 08/25/2024 MFM US PREG FOLLOW UP EACH FETUS Medical Imaging Routine resulting from in vitro fertilization, antepartum 6 Occurrences starting 02/24/2024 until 03/25/2025 Health Maintenance Due Date Last Done Comments Depression Screening 2001 Pap Smear 12/09/2018 12/10/2015 Cervical Cancer Screening 2019 HPV/Co-Test 2019 COVID-19 Vaccine (3 - 2022- season) 2023 03/12/2021, 02/05/2021 DTaP,Tdap,and Td Vaccines [...] Primary documented in this encounter Care Teams Employee Counselor Relationship Specialty Start Date End Date Judy Goss DO [address] [facility] [address] PCP - General Family Medicine 12/10/15 documented as of this encounter
--- OUTSIDE RECORDS SUMMARY | 2024-08-19 17:28 | External Medical Summary | Summary of Care ---
Author Name Unknown Organization [facility] Address [address] [place] [address] Phone [phone] Care Team Providers Care Rock Lather Name Role Phone Judy Goss DO Primary Care Provider Reason for Visit * Reason Comments Outpatient Testing Encounter Details Date Type Department Care Team (Late st Contact Info) Description 03/11/2024 7:20 AM EDT Laboratory Laboratory, [facility] [address] [place] [id number] [facility], Lab [address] [place] [address] resulting from in vitro fertilization, antepartum Allergies No known active allergiesdocumented as of this encounter (statuses as of 03/11/2024) Medications Medication Sig Dispensed Refills Start Date End Date Status Folic Acid 0.8 MG Oral Capsule Take by mouth. Active 6.75-0.2 MG Oral Tablet Take by mouth. Active documented as of this encounter (statuses as of 03/11/2024) Active Problems Problem Noted Date Diagnosed Date [...] as of this encounter (statuses as of 03/11/2024) Resolved Problems Problem Noted Date Diagnosed Date [...] as of this encounter (statuses as of 03/11/2024) Immunizations Name Administration Dates Next Due COVID-19 [...] = 0.6 oz pur e alcohol) occasional [place] Depression Scale Answer Date Recorded [place] Depression Scale Total 0 02/08/2024 The thought [...] 04/04/2024 11:30 AM EDT Office Visit Gynecology/Obstetrics, [place] [address] [facility] [place] [address] Mary Ken PA-C [address] [facility] [place] [address] 04/15/2024 1:30 PM EDT Office Visit Fitness Supervisor OB Maternal Medicine [facility] [address] [place] [address] [address] [place] [address] Desiree Zamudio, DO [address] [place] [address] 04/15/2024 1:30 PM EDT Imaging Maternal Medicine [facility] [address] [place] [address] Dr [address] [place] [address] Pending Results Name Type Priority Associated Diagnoses Date /Time QNATAL ADVANCED (QUEST) Lab Routine resulting from in vitro fertilization, antepartum 03/11/2024 7:21 AM EDT Health Maintenance Due Date Last Done Comments Depression Screening 2001 Pap Smear 12/09/2018 12/10/2015 Cervical Cancer Screening 2019 HPV/Co-Test 2019 COVID-19 Vaccine ( - season) 2023 03/12/2021, 02/05/2021 DTaP,Tdap,and Td Vaccines [...] Diagnoses Diagnosis resulting from in vitro fertilization, antepartum documented in this encounter Care Teams Rock Lather Relationship Specialty Start Date End Date Judy Goss DO [address] [facility] [place] [address] PCP - General Family Medicine 12/10/15 documented as of this encounter
--- OUTSIDE RECORDS SUMMARY | 2024-08-19 17:28 | External Medical Summary | Summary of Care ---
Author Name Unknown Organization [facility] Address [address] [facility] [place] [address] Phone [phone] Care Team Providers Care Mortgage Operations Manager Name Role Phone Judy Goss DO Primary Care Provider Reason for Visit * Reason Comments Return Visit 23w4d Encounter Details Date Type Department Care Team (Late st Contact Info) Description 05/02/2024 11:45 AM EDT Office Visit Gynecology/Obstetric [facility] [facility] [address] [facility] [place] [address] Mary Ken PA-C [address] [facility] [address], [place] [phone] 23 weeks gestation of *; resulting from in vitro fertilization, antepartum Allergies No known active allergiesdocumented as of this encounter (statuses as of 05/02/2024) Medications Medication Sig Dispensed Refills Start Date End Date Status Folic Acid 0.8 MG Oral Capsule Take by mouth. Active 6.75-0.2 MG Oral Tablet Take by mouth. Active documented as of this encounter (statuses as of 05/02/2024) Active Problems Problem Noted Date Diagnosed Date [...] as of this encounter (statuses as of 05/02/2024) Resolved Problems Problem Noted Date Diagnosed Date [...] as of this encounter (statuses as of 05/02/2024) Immunizations Name Administration Dates Next Due COVID-19 [...] = 0.6 oz pur e alcohol) occasional [place] Depression Scale Answer Date Recorded [place] Depression Scale Total 0 02/08/2024 The thought [...] EDT General Considerations Surrounding Immunization During The [employer] recommends routine [...] importantto remember that live attenuated vaccines (eg, kupioas-aptso-swfbvrz [MMR], varicella, and live attenuated influenza vaccine) do pose a theoretical risk (although never documented or proved) to the fetus and generally should be avoided during . The [place] (ACOG) makes the following recommendations: Obstetric care providers should administer the tetanus toxoid, reduced diphtheria toxoid, and acellular pertussis (Tdap) vaccine to all patients during each , as early in the 68-86-hcrkp-of-gestation window as possible. women should be counseled [...] Mary Ken PA-C documented in this encounter Plan of Treatment Upcoming Encounters Date Type Department Care Team (Late st Contact Info) Description 05/30/2024 11:30 AM EDT Office Visit Gynecology/Obstetrics, [place] [address] Radha Paula PA-C [address] [place] [address] 07/07/2024 2:30 PM EDT Imaging Maternal Medicine Imaging, [facility] [address] [facility] [place] [address] Scheduled Orders Name Type Priority Associated Diagnoses Orde r Schedule CBC WITH WBC DIFFERENTIAL AND ANEMIA REFLEX WORKUP Lab Routine 23 weeks gestation of Expected: 05/23/2024, Expires: 05/02/2025 50-G GESTATIONAL GLUCOSE, 1 HOUR Lab Routine 23 weeks gestation of Expected: 05/23/2024 (Approximate), Expires: 05/02/2025 SYPHILIS ANTIBODY SCREEN WITH REFLEX TO RPR Lab Routine 23 weeks gestation of Expected: 05/23/2024, Expires: 05/02/2025 Health Maintenance Due Date Last Done Comments [...] antepartum documented in this encounter Care Teams Mortgage Operations Manager Relationship Specialty Start Date End Date Judy Goss DO [address] [place] [address] PCP - General Family Medicine 12/10/15 documented as of this encounter
--- OUTSIDE RECORDS SUMMARY | 2024-08-19 17:28 | External Medical Summary ---
Author Name Unknown Address Unknown Organization : Laboratory Report Ordering Provider Test Date Status ANASTASIA SAMUEL 03/11/2024 07:21:53 Final Observation Date Value Abnormality Reference (Units ) Status NUMBER OF FETUSES? 03/11/2024 07:21:53 1 Final ADVANCED MATERNAL AGE? 03/11/2024 07:21:53 NO Final ABNORMAL RANDY? 03/11/2024 07:21:53 NO Final ABNORMAL US? 03/11/2024 07:21:53 NOT GIVEN Final PERSONAL/FAM HISTORY? 03/11/2024 07:21:53 NOT GIVEN Final INTERPRETATION 03/11/2024 07:21:53 SEE BELOW Final This specimen showed an expe cted representation of
chromosome 21, 18, and 13 material. Results were
not analyzed or reported for microdeletions. See
'Limitations' below. TRISOMY 21 (T21) 03/11/2024 07:21:53 Negative Final TRISOMY 18 (T18) 03/11/2024 07:21:53 Negative Final TRISOMY 13 (T13) 03/11/2024 07:21:53 Negative Final Y CHROMOSOME 03/11/2024 07:21:53 Detected Final Y CHR. INTERPRETATION 03/11/2024 07:21:53 SEE BELOW Final Consistent with a male fetus . SEX CHROMOSOME 03/11/2024 07:21:53 No aneuploidy Final SEX CHROMOSOME INTERP 03/11/2024 07:21:53 SEE BELOW Final No apparent abnormality was detected. See
'Limitations' below. MICRODELETION 03/11/2024 07:21:53 Opted Out Final MICRODELETION INTERP 03/11/2024 07:21:53 SEE BELOW Final Results were not analyzed or reported for
microdeletions. GESTATIONAL AGE (IN WEEKS) 03/11/2024 07:21:53 15 Final GESTATIONAL AGE (IN DAYS) 03/11/2024 07:21:53 1 Final FRACTION 03/11/2024 07:21:53 19.90% Final LABORATORY COMMENTS 03/11/2024 07:21:53 SEE BELOW Final Laboratory testing supervise d and results
monitored by Karen Langford, Ph.D., [facility],
[facility]. LIMITATIONS 03/11/2024 07:21:53 SEE BELOW Final QNatal(R) Advanced is a cell -free DNA screening
test that screens for increased risk of certain
chromosomal abnormalities that may cause
defects, including Trisomy 21 (Down
syndrome), Trisomy 18, Trisomy 13, and certain sex
chromosome abnormalities (i.e., 45,X, 47,XXY,
47,XXX, and 47,XYY), as well as sex. In
addition, if selected as an option, QNatal(R)
Advanced can screen for certain microdeletions
(i.e., 22q, 5p, 1p36, 15q, 11q, 8q, and 4p) that
may cause defects. This test does not assess
the risk of abnormalities such as neural
tube defects or ventral wall defects and should
not be considered in isolation from other clinical
findings and laboratory test results.
QNatal(R) Advanced has been validated in [place]
pregnancies for the trisomies and sex chromosome
abnormalities listed above, as well as for
microdeletions, and for the determination of
sex. Sex chromosome aneuploidy analysis is only
performed in [place] pregnancies. This screening
test has also been validated in twin pregnancies
for the trisomies listed above and for
microdeletions, but not for the sex chromosome
abnormalities due to limited data. This screening
test has not been validated in higher order
pregnancies (more than two) because limited data
is available. Sex chromosomal aneuploidy results
issued for pregnancies confirmed to be of multiple
gestations are not valid and should be
disregarded.
Microdeletion screening is limited to the
specified microdeletion regions (see
'Methodology'). The Y chromosome is analyzed for
the determination of sex. The sensitivity
and specificity of sex determination
analysis may be less than that of the Trisomy 21,
18, and 13 analysis and this determination can be
confounded by vanishing twin syndrome in
pregnancies that were originally multiple
gestation pregnancies. It should be noted that
QNatal(R) Advanced is a quantitative analysis of
maternal and placental cfDNA. As a result, the
accuracy of screening results may be affected by
the presence of chromosome abnormalities or
microdeletions that are maternal or confined
placental in origin. SPECIFICATIONS 03/11/2024 07:21:53 SEE BELOW Final Sensitivity Specificity
T21 >99.9% >99.9%
T18 >99.9% >99.9%
T13 >99.9% >99.9%
Accuracy
Y >99.9%
Performance of the QNatal Advanced
laboratory-developed test (LDT) has been
determined based on internal analytical
assessment. METHODOLOGY 03/11/2024 07:21:53 SEE BELOW Final Circulating cell-free (cf) D NA was isolated from
plasma followed by detection on a massively
parallel sequencing platform. Bioinformatic
analysis was performed to determine the
representation of chromosomes 21, 18, 13, X and Y
in circulating cell-free DNA. The representation
of sequences from the critical regions involved in
1p36 microdeletion syndrome (1p36),
Stephens-Hirschhorn syndrome (4p), Cri-du-chat
syndrome (5p), Jorge A-Giedion syndrome (8q),
Rina syndrome (11q), Prader Willi
syndrome/Angelman syndrome (15q), and DiGeorge
syndrome (22q) is evaluated for the detection of
microdeletions if requested. Performance
characteristics refer to the analytical
performance of this screening test. This screening
test is performed pursuant to a license agreement
with [employer].
QNatal Advanced is a laboratory developed test
that has been developed and validated, pursuant to
the Clinical Laboratory Improvements Amendments of
1988 (CLIA), and as such it has not been reviewed
by FDA.
Test performed by [facility]
[id number],
[place] [address]

Film Painter: Yin Jesus MD,PHD,TOBIAS
[facility],
[employer],
[address] [address], [place]
Zack White M.D., Ph.D., Director of Laboratories
, CLIA [id number] Performing Location
[2024-08-19] MEDS ORDERED: Nursing to Pharmacy Communication SCH (18:00)
[2024-08-19] MEDS: miSOPROStoL 50 MCG TAB PO SCH (18:01)
--- NOTE | 2024-08-19 23:23 | Obstetrical Progress Note ---
Date of Service August 19, 2024 Assessment & Plan (1) : Plan: Pt doing well Received 3 doses of Cytotec FHR; CAT1 Ctx; 2-4min VE; 2-3/50/-2 Admission and Anticipated Discharge Date Admission Date: August 19, 2024 Results & Data Vital Signs (Past 12 Hours) Vital Signs Temp Pulse Resp BP O2 Del Method 08/19/24 22:48 57 L 127/95 08/19/24 22:47 18 08/19/24 22:47 36.8 C 18 08/19/24 22:47 36.8 C 08/19/24 22:47 18 08/19/24 22:47 36.8 C 18 08/19/24 19:05 36.8 C 18 08/19/24 19:05 Room Air 08/19/24 19:05 36.8 C 61 18 140/89 08/19/24 18:06 64 119/81 08/19/24 17:25 60 112/79 08/19/24 15:43 59 L 123/82 08/19/24 15:01 16 08/19/24 15:01 36.5 C 16 08/19/24 13:46 71 115/77 08/19/24 12:30 16 08/19/24 12:30 36.6 C 16 08/19/24 12:14 64 124/80 08/19/24 12:11 62 125/79
[2024-08-19] MEDS: DINOPROSTONE 10 MG INSERT PV ONE (23:25)
[2024-08-20] MEDS: LACTATED RINGER'S 1,000 ML IV SCH (04:14)
[2024-08-20] MEDS ORDERED: ROPIVACAINE 0.5% PF 5 MG/ML 20 ML VIAL EPI PRN (04:37)
[2024-08-20] MEDS ORDERED: NALOXONE HCL 0.4 MG/1 ML VIAL/CARP IV PRN (04:37)
[2024-08-20] MEDS ORDERED: BUPIVACAINE 0.25% PF 30 ML VIAL EPI PRN (04:37)
[2024-08-20] MEDS ORDERED: NALOXONE HCL 1 MG in SODIUM CHLORIDE 0.9% 1,000 ML IV PRN (04:37)
[2024-08-20] MEDS ORDERED: ePHEDrine sulfate 50 MG/ML AMP IV PRN (04:37)
[2024-08-20] MEDS ORDERED: SODIUM CHLORIDE 0.9% PF INJ 10 ML VIAL EPI PRN (04:37)
[2024-08-20] MEDS ORDERED: fentaNYL citrate PF 100 MCG/2 ML VIAL EPI PRN (04:37)
[2024-08-20] MEDS ORDERED: NALBUPHINE HCL INJ 10 MG/ML AMP IV PRN (04:37)
[2024-08-20] MEDS ORDERED: diphenhydrAMINE 50 MG/ML VIAL IV PRN (04:37)
[2024-08-20] MEDS ORDERED: LIDOCAINE 2% MPF LOCAL 5 ML VIAL EPI PRN (04:37)
--- NOTE | 2024-08-20 04:37 | Anesthesiology Consultation ---
Date of Service August 20, 2024 Assessment & Plan (1) Encounter for pre-operative examination: Chart Review Chart Review: Patient NOT seen in Pre Admission Testing and Acceptable Risk for Labor Epidural Consults Requested none History Height/Weight Height: 5 ft 6 in Weight: 68.039 kg Allergies Allergy/AdvReac Type Severity Reaction Status Date / Time No Known Allergies Allergy Verified 02/13/21 09:10 Medications Home Medications Medication Instructions Recorded Confirmed Last Taken docusate sodium 100 mg capsule 100 mg PO BID PRN Constipation 08/19/24 08/19/24 Unknown iron-vitamin B complex with C 27 tab PO DAILY 08/19/24 Unknown mg-300 mg tablet prenat.vits,rey,[id number] tab PO DAILY 08/19/24 Unknown Active Medications Generic Name Dose Route Start Last Admin Trade Name Freq PRN Reason Stop Dose Admin Lactated Ringer's 1,000 mls @ 50 mls/hr 08/19/24 09:45 08/20/24 04:14 Lr IV 08/20/24 09:44 999 mls/hr .Q20H MELINDA Administration Misoprostol 50 mcg 08/19/24 16:00 08/20/24 00:22 Misoprostol 50 Mcg Tab PO 09/18/24 15:59 Not Given Q4 MELINDA Past Medical History Medical History Vaginal candidiasis Irritation of vulva Ovarian cyst Past Family History Family History Father Hypertension Mother Osteoporosis Sister PCOS (polycystic ovarian syndrome) Past Surgical History Surgical History History of oral surgery Hx of tonsillectomy Social History Smoking Status: Never smoker Do You Dip or Chew Tobacco: No Hx Alcohol Use: No Hx Substance Use: No substance use type: does not use Physical Exam Vital Signs Last Vital Signs Temp 98.4 F 08/20/24 02:01 Pulse 80 08/20/24 02:01 Resp 18 08/20/24 02:01 BP 119/83 08/20/24 02:01 O2 Del Method Room Air 08/19/24 19:05 Testing Laboratory Results 08/19/24 10:12
[2024-08-20] MEDS: BUPIVACAINE 0.25% PF 30 ML VIAL ONE (04:56)
[2024-08-20] MEDS: LIDOCAINE 2%/EPINEPHRINE 1:200,000 20 ML PF ONE (04:56)
[2024-08-20] MEDS: fentANYL 2 MCG/ML BUPIVacaine 0.125%-NSS 100ML BAG ONE (04:58)
[2024-08-20] MEDS: SODIUM CHLORIDE 0.9% PF INJ 10 ML VIAL ONE (05:06)
[2024-08-20] MEDS: fentaNYL citrate PF 100 MCG/2 ML VIAL ONE (05:06)
[2024-08-20] MEDS: SODIUM CHLORIDE 0.9% PF INJ 10 ML VIAL EPI STA (05:07)
[2024-08-20] MEDS: LIDOCAINE 2%/EPINEPHRINE 1:200,000 20 ML PF EPI STA (05:07)
[2024-08-20] MEDS: BUPIVACAINE 0.25% PF 30 ML VIAL EPI STA (05:07)
[2024-08-20] MEDS: fentaNYL citrate PF 100 MCG/2 ML VIAL EPI STA (05:07)
[2024-08-20] MEDS: OXYTOCIN 30 UNITS/NSS 30 UNITS/500 ML BAG IV PRN (05:15)
[2024-08-20] MEDS: ePHEDrine sulfate 50 MG/ML AMP ONE (05:32)
[2024-08-20] MEDS: fentANYL 2 MCG/ML BUPIVacaine 0.125%-NSS 100ML BAG EPI PRN (13:08)
[2024-08-20] MEDS ORDERED: NURSING L&D Epidural Breakthrough Pain Update ONE (13:10)
[2024-08-20] MEDS ORDERED: HYDROCORTISONE ACETATE 25 MG SUPP PR PRN (16:22)
[2024-08-20] MEDS ORDERED: OXYTOCIN 30 UNITS/NSS 30 UNITS/500 ML BAG IV PRN (16:22)
[2024-08-20] MEDS ORDERED: DOCUSATE SODIUM 100 MG CAP PO PRN (16:22)
[2024-08-20] MEDS ORDERED: ACETAMINOPHEN 325 MG TAB PO PRN (16:22)
[2024-08-20] MEDS ORDERED: DIPHTHER/TETAN/PERTUS Vaccine (Tdap, Adol/Adult) 0.5mL IM ONE (16:22)
[2024-08-20] MEDS ORDERED: bisacodyL 10 MG SUPP PR PRN (16:22)
--- NOTE | 2024-08-20 16:24 | Delivery Summary ---
Vaginal Delivery Summary Date of Service August 20, 2024 Vaginal Delivery Summary live male JEANNA over intact perineum with delayed cord clamping and Apgars 9/9 weight pending. Cord blood obtained followed by spontaneous delivery of intact placenta. Small first degree tear repaired with 3/0 Vicryl suture. QBL 169 ml. Final sponge needle and instrument count are correct. Mom and baby stable.
--- NOTE | 2024-08-20 16:40 | Anesthesia Procedure Note ---
Date of Service August 20, 2024 Anesthesia Post Epidural Note Vital Signs Vital Signs: Temp Pulse Resp BP Pulse Ox O2 Del Method 37.0 C 86 24 124/82 97 Room Air 08/20/24 15:01 08/20/24 16:28 08/20/24 15:01 08/20/24 16:28 08/20/24 16:07 08/19/24 19:05 Pain Intensity Abdomen: Pain Intensity: 6 Notes Mental Status: alert / awake / arousable and participated in evaluation Nausea / Vomiting: adequately controlled Pain: adequately controlled Airway Patency, RR, SpO2: stable & adequate BP & HR: stable & adequate Hydration State: stable & adequate Neuraxial Anesthesia: was administered and sensory block is resolving Anesthetic Complications: no major complications apparent and Pt Satisfied with anesthetic care Epidural: Removed without complications and With tip intact
[2024-08-20] MEDS: IBUPROFEN 600 MG TAB PO PRN (18:25)
[2024-08-20 21:27] VITALS: RESP 16
[2024-08-21 06:49] LABS: Hematocrit (blood only) 30.2 % (37.0-47.0); Hemoglobin 10.4 g/dl (12.0-16.0); Mean Corpuscular Hemoglobin 30.1 pg (25.0-34.0); Mean Corpuscular Hgb Conc 34.4 g/dL (32.0-36.0); Mean Corpuscular Volume 87.5 fL (80.0-100.0); Mean Platelet Volume 10.6 fL (9.4-12.4); Platelet Count 189 K/uL (130-400); RDW Coefficient of Variation 12.9 % (11.5-14.5); RDW Standard Deviation 40.9 fL (36.4-46.3); Red Blood Count 3.45 M/uL (4.20-5.40); White Blood Count 19.59 K/ul (4.8-10.8)
[2024-08-21] MEDS: BENZOCAINE 20% SPRY 85 APPLN/85 GM CAN EXT PRN (08:35)
[2024-08-21] MEDS: DOCUSATE SODIUM 100 MG CAP PO SCH (08:35)
[2024-08-21] MEDS: FERROUS SULFATE 325 MG TAB PO SCH (08:36)
[2024-08-21] MEDS: PRENATAL VITAMIN 1 TAB PO SCH (08:37)
--- NOTE | 2024-08-21 09:50 | Obstetrical Progress Note ---
Date of Service August 21, 2024 Subjective Ambulation: ambulating normally Voiding: no voiding problems Passing Gas:: Yes Diet Tolerance:: regular diet Lochia:: Small Feeding Type:: breast feeding Current Pain Level(1-10): 0 doing well Physical Exam Constitutional WD/WN, vitals as above Gastrointestinal (Abdomen) Inspection/Auscultation: abdomen normal to inspection abdomen soft and non-tender. fundus firm below U. Musculoskeletal Extremities: extremities normal to inspection Skin no rashes, warm and dry Neurologic patellar DTR's 2+ bilat, sensation intact Psychiatric A+Ox3, euthymic affect Results & Data Vital Signs (Past 12 Hours) Vital Signs Temp Pulse Resp BP Pulse Ox O2 Del Method 08/21/24 07:50 36.7 C 76 16 118/79 98 Room Air 08/21/24 03:43 36.5 C 78 16 131/89 100 Room Air 08/20/24 23:02 37.3 C 85 16 108/72 96 Room Air Laboratory Results Laboratory Results - last 72 hr 08/19/24 08/21/24 10:12 06:22 WBC 10.35 19.59 H RBC 4.01 L 3.45 L Hgb 12.2 10.4 L Hct 35.8 L 30.2 L MCV 89.3 87.5 MCH 30.4 30.1 MCHC 34.1 34.4 RDW Std Deviation 42.6 40.9 RDW Coeff of Catracho 13.0 12.9 Plt Count 188 189 MPV 10.5 10.6 Treponema pallidum Ab Negative
[2024-08-21] MEDS: bisacodyL 5 MG TABEC PO SCH (21:08)
[2024-08-22 06:10] LABS: Hematocrit (blood only) 30.3 % (37.0-47.0)
[2024-08-22 07:43] VITALS: BP 120/79; PULSE 67; TEMP 97.5; O2SAT 98
--- NOTE | 2024-08-22 09:50 | Obstetrical Progress Note ---
Date of Service August 22, 2024 Assessment & Plan (1) Normal course: PPD #2 Pt doing well No complaints Subjective Ambulation: ambulating normally Voiding: no voiding problems Passing Gas:: Yes Diet Tolerance:: regular diet Lochia:: Small Feeding Type:: breast feeding Review of Systems All systems reviewed & are unremarkable except as noted in HPI & below Physical Exam Constitutional WD/WN, vitals as above well developed and well nourished Eyes PERRL, conjunctivae normal, anicteric sclerae Neck trachea midline, no thyromegaly Respiratory normal respiratory effort, lungs clear to auscultation Auscultation: no crackles, no rales and no wheezes Cardiovascular RRR, no murmur, no edema Gastrointestinal (Abdomen) normal bowel sounds, soft, nontender, no hepatosplenomegaly Uterus is below umbilicus Musculoskeletal no cyanosis or clubbing, extremities motor strength 5/5 Skin no rashes, warm and dry Neurologic patellar DTR's 2+ bilat, sensation intact Psychiatric A+Ox3, euthymic affect Genitourinary normal external appearance Results & Data Vital Signs (Past 12 Hours) Vital Signs Temp Pulse Resp BP Pulse Ox O2 Del Method 08/22/24 07:35 36.4 C L 67 16 120/79 98 Room Air 08/21/24 23:25 36.3 C L 77 16 110/73 97 Room Air
== END 2024-08-22 14:10 | disposition home health service (06) | DRG 807 ==
LOC: 4S1 08:18 → 4E2 08-20 18:57